=== PATIENT | female | born 1985 | race Caucasian/White ===

== ENCOUNTER 2016-08-25 20:35 | Emergency (ER) | payer OTHER ==
[2016-08-25 20:53] VITALS: BP 139/77; PULSE 104; RESP 16; TEMP 97.8
[2016-08-25] MEDS ORDERED: TOPICAL SKIN ADHESIVE 1 EACH AMP TOPICAL ONE (20:54)
[2016-08-25] MEDS ORDERED: DIPH,PERTUS(ACELL)TETVAC-LF 0.5 ML VIAL IM ONE (20:54)
--- NOTE | 2016-08-25 21:14 | ED ---
General Adult HPI - General Chief complaint: Wound/Laceration Stated complaint: lac rt thumb Time Seen by Provider: 08/25/16 20:53 Source: patient, RN notes reviewed Mode of arrival: ambulatory Limitations: no limitations - History of Present Illness Initial comments: This is a 31-year-old female presents with a scratch to the right thumb that happened approximately 1 hour ago. Patient states she was doing dishes and washing a glass when the rim of the glass broke and scratched her thumb. Patient states she is concerned about the cut. Patient does not know if she is up-to-date on her tetanus shot. Patient denies any numbness/weakness or tingling. Patient denies any recent fever, chills, shortness breath, chest pain , abdominal pain, nausea/vomiting/diarrhea, back pain, hematuria, headache, or visual changes, or any other complaints. - Related Data Home Medications Medication Instructions Recorded Confirmed Loratadine [Claritin] 10 mg PO DAILY 12/09/15 08/25/16 Omeprazole 20 mg PO BID 02/03/16 08/25/16 Previous Rx's Medication Instructions Recorded Divalproex [Depakote] 500 mg PO BID #60 tablet. 02/08/16 Ibuprofen [Motrin] 800 mg PO Q8H PRN #0 tab 02/08/16 QUEtiapine [SEROquel] 200 mg PO HS #30 tab 02/08/16 buPROPion XL [Wellbutrin XL] 150 mg PO DAILY #30 tab.er.24h 02/08/16 Clindamycin [Cleocin] 300 mg PO Q8HR #60 capsule 03/11/16 HYDROcodone/APAP 5-325MG [[place] 1 tab PO Q4HR PRN #20 tab 03/11/16 5-325] HYDROcodone/APAP 5-325MG [[place] 5] 1 each PO Q4HR #5 tab 03/31/16 Ibuprofen [Motrin] 400 mg PO Q4H 7 Days 03/31/16 Ondansetron [Zofran] 4 mg PO Q8HR #21 tab 03/31/16 Allergies Allergy/AdvReac Type Severity Reaction Status Date / Time amoxicillin Allergy Rash/Hives Verified 03/11/16 16:03 ciprofloxacin Allergy Anaphylaxis Verified 03/11/16 16:03 codeine Allergy Rash/Hives Verified 08/25/16 20:53 Review of Systems ROS Statement: Those systems with pertinent positive or pertinent negative responses have been documented in the HPI. ROS Other: All systems not noted in ROS Statement are negative. Past Medical History Past Medical History: No Reported History Additional Past Medical History / Comment(s): currently has a staph infection from tubal History of Any Multi-Drug Resistant Organisms: MRSA Date of last positivie culture/infection: 2009 MDRO Source:: left chest Past Surgical History: Tubal Ligation Additional Past Surgical History / Comment(s): right foot bunionectomy Past Anesthesia/Blood Transfusion Reactions: No Reported Reaction Past Psychological History: Anxiety, Depression Smoking Status: Current every day smoker Past Alcohol Use History: None Reported Past Drug Use History: None Reported General Exam - General Exam Comments Initial Comments: General: The patient is awake and alert, in no distress, and does not appear acutely ill. Neck: The neck is supple, there is no tenderness or JVD. Cardiovascular: There is a regular rate and rhythm. No murmur, rub or gallop is appreciated. Respiratory: Lungs are clear to auscultation, respirations are non-labored, breath sounds are equal. No wheezes, stridor, rales, or rhonchi. Musculoskeletal: Patient has full range of motion, strength 5/5 and Sensation intact. Radial pulses 2+ bilaterally and capillary refill is normal at less than 2 seconds. Neurological: A&O x 3. CN II-XII intact, There are no obvious motor or sensory deficits. Coordination appears grossly intact. Speech is normal. Skin: There is an approximately 2.5 cm scratch to the patient's medial aspect of the MCP joint of the first digit of the right hand. Skin is warm and dry and no rashes or lesions are noted. Psychiatric: Normal mood and affect. Limitations: no limitations Course Vital Signs 08/25/16 20:51 Temperature 97.8 F Pulse Rate 104 H Respiratory 16 Rate Blood Pressure 139/77 O2 Sat by Pulse 98 Oximetry Medical Decision Making - Medical Decision Making This is a 31-year-old female presenting with a scratch to the right thumb. On physical exam there is an approximately 2.5 cm scratch to the patient's medial aspect of the MCP joint of the first digit of the right hand. Patient is given a tetanus shot in the EC today. The wound was cleansed with normal saline. This is a very superficial scratch with very well approximated wound edges and the wound was closed successfully with Dermabond. I discussed Tylenol and Motrin for any pain. I discussed keeping the area clean and discussed that the patient should not submerge the wound in water. Discussed keeping the wound covered at work. I discussed the Dermabond will follow off on its own. I discussed return parameters and signs and symptoms of infection. Discussed that patient should follow up with PCP in one to 2 days or return to the [facility] for any worsening symptoms or for any further concerns. Patient was receptive to this plan and patient will be discharged home. Disposition Clinical Impression: Scratch of hand Disposition: HOME SELF-CARE Condition: Good Instructions: Abrasion (ED) Additional Instructions: Please do not submerge the wound in water but rinsing and showering okay. Dermabond will fall off on its own in 5-7 days. Please watch for the any increasing redness, swelling, tenderness or drainage from the wound. Please use Tylenol and Motrin for any pain. Please follow-up with family doctor in the next 2 days of symptoms have not improved. Please return to emergency room if the symptoms increase or worsen or for any other concerns. Referrals: Baron Salmeron Jr, [Primary Care Provider] - 1-2 days Time of Disposition: 21:17
== END 2016-08-25 21:31 | disposition home or self-care (01) ==
LOC: EC 20:35
DX: S61.011A Laceration without foreign body of right thumb without damage to nail, initial encounter (principal); Y93.G1 Activity, food preparation and clean up; W25.XXXA Contact with sharp glass, initial encounter; F32.9 Major depressive disorder, single episode, unspecified; F41.9 Anxiety disorder, unspecified; Z23 Encounter for immunization; Z86.14 Personal history of Methicillin resistant Staphylococcus aureus infection; Z79.899 Other long term (current) drug therapy; F17.200 Nicotine dependence, unspecified, uncomplicated; Z88.1 Allergy status to other antibiotic agents; Z88.5 Allergy status to narcotic agent; Z88.2 Allergy status to sulfonamides
CPT/HCPCS: 12001; 90471; 90715; 99282

== ENCOUNTER 2016-10-19 12:37 | Emergency (ER) | payer OTHER ==
[2016-10-19] MEDS ORDERED: SODIUM CHLORIDE 0.9% 1,000 ML IV STA ×2 (14:03→15:17)
[2016-10-19 14:23] LABS: Glucose,Whole Blood 110 mg/dL (75-99)
--- NOTE | 2016-10-19 14:27 | ED ---
General Adult HPI - General Chief complaint: Recheck/Abnormal Lab/Rx Stated complaint: syncope/weakness Time Seen by Provider: 10/19/16 13:54 Source: patient, RN notes reviewed Mode of arrival: ambulatory Limitations: no limitations - History of Present Illness Initial comments: Patient 31-year-old female who presents emergency room today with chief complaint feeling lightheaded and dizzy over the last 3 days. She does admit that she's had 2 syncopal episodes. She states that yesterday she was walking down some steps when she passed out and fell down. States he immediately woke up. She denies any head injury at the time. She denies any injuries from the fainting episode. She states still feeling lightheaded dizzy today. She states her appetite spelled down as she is felt more nauseous past 3 days. She states not been eating and drinking like normal. Patient denies any other complaints or associated symptoms. Patient denies any recent fever, chills, shortness of breath, chest pain, back pain, abdominal pain, nausea or vomiting, numbness or tingling, dysuria or hematuria, constipation or diarrhea, headaches or visual changes, or any other complaints. - Related Data Home Medications Medication Instructions Recorded Confirmed Omeprazole 20 mg PO BID 02/03/16 10/19/16 FLUoxetine HCL [PROzac] 40 mg PO DAILY 10/19/16 10/19/16 Varenicline Tartrate [Chantix] 1 mg PO BID 10/19/16 10/19/16 cloNIDine HCL [cloNIDine HCL] 0.3 mg PO HS 10/19/16 10/19/16 Previous Rx's Medication Instructions Recorded Ibuprofen [Motrin] 800 mg PO Q8H PRN #0 tab 02/08/16 Allergies Allergy/AdvReac Type Severity Reaction Status Date / Time amoxicillin Allergy Rash/Hives Verified 10/19/16 14:19 ciprofloxacin Allergy Anaphylaxis Verified 10/19/16 14:19 codeine Allergy Rash/Hives Verified 10/19/16 14:19 Review of Systems ROS Statement: Those systems with pertinent positive or pertinent negative responses have been documented in the HPI. ROS Other: All systems not noted in ROS Statement are negative. Past Medical History Past Medical History: No Reported History Additional Past Medical History / Comment(s): currently has a staph infection from tubal History of Any Multi-Drug Resistant Organisms: MRSA Date of last positivie culture/infection: 2009 MDRO Source:: left chest Past Surgical History: Tubal Ligation Additional Past Surgical History / Comment(s): right foot bunionectomy Past Anesthesia/Blood Transfusion Reactions: No Reported Reaction Past Psychological History: Anxiety, Depression Smoking Status: Former smoker Past Alcohol Use History: None Reported Past Drug Use History: None Reported General Exam - General Exam Comments Initial Comments: General: The patient is awake and alert, in no distress, and does not appear acutely ill. Eye: Pupils are equal, round and reactive to light, extra-ocular movements are intact. No nystagmus. There is normal conjunctiva bilaterally. No signs of icterus. Ears, nose, mouth and throat: There are moist mucous membranes and no oral lesions. Neck: The neck is supple, there is no tenderness or JVD. Cardiovascular: There is a regular rate and rhythm. No murmur, rub or gallop is appreciated. Respiratory: Lungs are clear to auscultation, respirations are non-labored, breath sounds are equal. No wheezes, stridor, rales, or rhonchi. Gastrointestinal: Soft, non-distended, non-tender abdomen without masses or organomegaly noted. There is no rebound or guarding present. No CVA tenderness. Bowel sounds are unremarkable. Musculoskeletal: Normal ROM, no tenderness. Strength 5/5. Sensation intact. Pulses equal bilaterally 2+. Neurological: A&O x 3. CN II-XII intact, There are no obvious motor or sensory deficits. Coordination appears grossly intact. Speech is normal. Skin: Skin is warm and dry and no rashes or lesions are noted. Psychiatric: Cooperative, appropriate mood & affect, normal judgment. Limitations: no limitations Course Vital Signs 10/19/16 10/19/16 10/19/16 12:42 14:22 15:15 Temperature 97 F L 97.9 F 9.2 F L Pulse Rate 74 60 Pulse Rate [ 63 Sitting] Pulse Rate [ 64 Standing] Pulse Rate [ 60 Supine] Respiratory 20 14 16 Rate Blood Pressure 95/40 107/66 Blood Pressure 93/56 [Right Arm Supine] Blood Pressure 93/60 [Sitting] Blood Pressure 86/52 [Standing] O2 Sat by Pulse 98 98 Oximetry Medical Decision Making - Medical Decision Making patient reexamined at this time shows no signs of distress. Patient feeling much better after IV fluids here in the emergency room. Patient was given 2 L bolus. Patient's blood pressure improved. Patient denies any symptoms at this time. She denies any dizziness or lightheadedness. She's been up walking around the room without any problems. Patient's EKG does show sinus bradycardia. patient denies any known history. She does admit that she was placed on clonidine 2 weeks ago. Initial blood pressure was 90s over 50s. Advised patient to hold clonidine. Was discussed with patient. Patient states she feels comfortable being discharged. Case was discussed with attending physician Dr. Jackson discuss case with patient's family doctor Dr. Salmeron states patient may follow-up with him in the office tomorrow morning. Patient states with plan states understanding. - Lab Data Result diagrams: 10/19/16 14:30 10/19/16 14:30 Lab Results 10/19/16 10/19/16 10/19/16 Range/Units 14:18 14:30 14:30 WBC 10.0 (3.8-10.6) k/uL RBC 4.55 (3.80-5.40) m/uL Hgb 12.7 (11.4-16.0) gm/dL Hct 38.1 (34.0-46.0) % MCV 83.7 (80.0-100.0) fL MCH 28.0 (25.0-35.0) pg MCHC 33.4 (31.0-37.0) g/dL RDW 14.6 (11.5-15.5) % Plt Count 288 (150-450) k/uL Neutrophils % 70 % Lymphocytes % 22 % Monocytes % 3 % Eosinophils % 2 % Basophils % 1 % Neutrophils # 7.0 (1.3-7.7) k/uL Lymphocytes # 2.2 (1.0-4.8) k/uL Monocytes # 0.3 (0-1.0) k/uL Eosinophils # 0.2 (0-0.7) k/uL Basophils # 0.1 (0-0.2) k/uL Sodium 138 (137-145) mmol/L Potassium 4.2 (3.5-5.1) mmol/L Chloride 105 (98-107) mmol/L Carbon Dioxide 22 (22-30) mmol/L Anion Gap 11 mmol/L BUN 21 H (7-17) mg/dL Creatinine 1.09 H (0.52-1.04) mg/dL Est GFR (MDRD) Af Amer >60 (>60 ml/min/1.73 sqM) Est GFR (MDRD) Non-Af 59 (>60 ml/min/1.73 sqM) Glucose 100 H (74-99) mg/dL POC Glucose (mg/dL) 110 H (75-99) mg/dL POC Glu Professional Organizer ID Merna Burns Calcium 9.4 (8.4-10.2) mg/dL Total Bilirubin 1.0 (0.2-1.3) mg/dL AST 17 (14-36) U/L ALT 29 (9-52) U/L Alkaline Phosphatase 109 (38-126) U/L Total Protein 7.9 (6.3-8.2) g/dL Albumin 4.7 (3.5-5.0) g/dL Urine Color Urine Appearance (Clear) Urine pH (5.0-8.0) Ur Specific [place] (1.001-1.035) Urine Protein (Negative) Urine Glucose (UA) (Negative) Urine Ketones (Negative) Urine Blood (Negative) Urine Nitrite (Negative) Urine Bilirubin (Negative) Urine Urobilinogen (<2.0) mg/dL Ur Leukocyte Esterase (Negative) Urine RBC (0-5) /hpf Urine WBC (0-5) /hpf Ur Squamous Epith Cells (0-4) /hpf Urine Bacteria (None) /hpf Hyaline Casts (0-2) /lpf Urine Mucus (None) /hpf Urine HCG, Qual (Not Detectd) 10/19/16 10/19/16 Range/Units 15:12 15:15 WBC (3.8-10.6) k/uL RBC (3.80-5.40) m/uL Hgb (11.4-16.0) gm/dL Hct (34.0-46.0) % MCV (80.0-100.0) fL MCH (25.0-35.0) pg MCHC (31.0-37.0) g/dL RDW (11.5-15.5) % Plt Count (150-450) k/uL Neutrophils % % Lymphocytes % % Monocytes % % Eosinophils % % Basophils % % Neutrophils # (1.3-7.7) k/uL Lymphocytes # (1.0-4.8) k/uL Monocytes # (0-1.0) k/uL Eosinophils # (0-0.7) k/uL Basophils # (0-0.2) k/uL Sodium (137-145) mmol/L Potassium (3.5-5.1) mmol/L Chloride (98-107) mmol/L Carbon Dioxide (22-30) mmol/L Anion Gap mmol/L BUN (7-17) mg/dL Creatinine (0.52-1.04) mg/dL Est GFR (MDRD) Af Amer (>60 ml/min/1.73 sqM) Est GFR (MDRD) Non-Af (>60 ml/min/1.73 sqM) Glucose (74-99) mg/dL POC Glucose (mg/dL) (75-99) mg/dL POC Glu Professional Organizer ID Calcium (8.4-10.2) mg/dL Total Bilirubin (0.2-1.3) mg/dL AST (14-36) U/L ALT (9-52) U/L Alkaline Phosphatase (38-126) U/L Total Protein (6.3-8.2) g/dL Albumin (3.5-5.0) g/dL Urine Color Yellow Urine Appearance Clear (Clear) Urine pH 6.0 (5.0-8.0) Ur Specific [place] 1.024 (1.001-1.035) Urine Protein Trace H (Negative) Urine Glucose (UA) Trace H (Negative) Urine Ketones Negative (Negative) Urine Blood Trace H (Negative) Urine Nitrite Negative (Negative) Urine Bilirubin Negative (Negative) Urine Urobilinogen <2.0 (<2.0) mg/dL Ur Leukocyte Esterase Moderate H (Negative) Urine RBC 8 H (0-5) /hpf Urine WBC 6 H (0-5) /hpf Ur Squamous Epith Cells 3 (0-4) /hpf Urine Bacteria Rare H (None) /hpf Hyaline Casts 7 H (0-2) /lpf Urine Mucus Rare H (None) /hpf Urine HCG, Qual Not Detected (Not Detectd) Disposition Clinical Impression: Lightheaded, Syncope, Nausea & vomiting Disposition: HOME SELF-CARE Condition: Stable Instructions: Syncope (ED) Additional Instructions: Please follow-up family doctor tomorrow morning in the office as discussed. Please use nausea medication as prescribed. Please hold clonidine. Please return to emergency room if any symptoms increase or worsen or for any other concerns. Referrals: Baron Salmeron Jr, DO [Primary Care Provider] - 1-2 days Time of Disposition: 16:35
[2016-10-19 14:37] LABS: Basophils # (A) 0.1 k/uL (0-0.2); Basophils % (A) 1 %; CH 27.8; CHCM 33.3; Eosinophils # (A) 0.2 k/uL (0-0.7); Eosinophils % (A) 2 %; HCT 38.1 % (34.0-46.0); HDW 2.87; HGB 12.7 gm/dL (11.4-16.0); Luc # (Auto) 0.16; Luc % (Auto) 2; Lymphocytes # (A) 2.2 k/uL (1.0-4.8); Lymphocytes % (A) 22 %; MCHC 33.4 g/dL (31.0-37.0); MCV 83.7 fL (80.0-100.0); Mean Platelet Volume 7.7; Monocytes # (A) 0.3 k/uL (0-1.0); Monocytes % (A) 3 %; Neutrophils % (A) 70 %; RBC 4.55 m/uL (3.80-5.40); RDW 14.6 % (11.5-15.5); WBC (Perox) 10.64
[2016-10-19 14:51] LABS: ALT 29 U/L (9-52); AST 17 U/L (14-36); Alkaline Phosphatase 109 U/L (38-126); Anion Gap 11 mmol/L; Blood Urea Nitrogen 21 mg/dL (7-17); Calcium 9.4 mg/dL (8.4-10.2); Carbon Dioxide 22 mmol/L (22-30); Chloride 105 mmol/L (98-107); Glucose 100 mg/dL (74-99); Non-African American GFR(MDRD) 59 (>60 ml/min/1.73 sqM); Potassium 4.2 mmol/L (3.5-5.1); Sodium 138 mmol/L (137-145); Total Protein 7.9 g/dL (6.3-8.2)
--- NOTE | 2016-10-19 14:52 | XR ---
EXAMINATION TYPE: XR chest 2V DATE OF EXAM: 10/19/2016 2:41 PM COMPARISON: None HISTORY: 31-year-old female with syncope TECHNIQUE: PA and lateral views FINDINGS: The cardiomediastinal silhouette, aorta, and pulmonary vasculature are within normal limits. Some str rasta bilateral infrahilar areas of atelectasis are present. No consolidation or pleural effusion. IMPRESSION: Strandy areas of atelectasis without acute process.
[2016-10-19 15:28] LABS: Appearance,Urine Clear (Clear); Bacteria,Urine Rare /hpf; Bilirubin,Urine Negative (Negative); Glucose,Urine (UA) Trace (Negative); Ketones,Urine Negative (Negative); Leukocyte Esterase,Urine Moderate (Negative); Mucus,Urine Rare /hpf; Nitrite,Urine Negative (Negative); Particle Count 5707; Protein,Urine Trace (Negative); RBC,Urine 8 /hpf (0-5); Specific Gravity,Urine 1.024 (1.001-1.035); Squamous Epithelial Cell,Urine 3 /hpf (0-4); UA Billing (MACRO vs. MICRO) MICRO; Urobilinogen,Urine <2.0 mg/dL (<2.0); WBC,Urine 6 /hpf (0-5)
[2016-10-19 16:54] VITALS: BP 124/67; PULSE 98; RESP 18; TEMP 97.3
== END 2016-10-19 16:54 | disposition home or self-care (01) ==
LOC: EC 12:37
DX: R55 Syncope and collapse (principal); R42 Dizziness and giddiness; R11.2 Nausea with vomiting, unspecified; F32.9 Major depressive disorder, single episode, unspecified; F41.9 Anxiety disorder, unspecified; Z87.891 Personal history of nicotine dependence; Z79.899 Other long term (current) drug therapy; Z88.0 Allergy status to penicillin; Z88.1 Allergy status to other antibiotic agents; Z88.5 Allergy status to narcotic agent
CPT/HCPCS: 36415; 71020; 80053; 81001; 81025; 85025; 93005; 96360; 96361; 99284

== ENCOUNTER 2016-12-15 12:44 | Emergency (ER) | payer OTHER ==
[2016-12-15] MEDS ORDERED: SODIUM CHLORIDE 0.9% 1,000 ML IV ONE (14:21)
[2016-12-15] MEDS ORDERED: KETOROLAC 30 MG/ML 1 ML VIAL IVP STA (14:22)
--- NOTE | 2016-12-15 14:52 | ED ---
General Adult HPI - General Chief complaint: Abdominal Pain Stated complaint: Retaining Water Time Seen by Provider: 12/15/16 14:08 Source: patient Mode of arrival: ambulatory Limitations: no limitations - History of Present Illness Initial comments: Patient is a 31-year-old female who presents with a chief complaint of dysuria, urinary frequency 3 days. Patient states that she feels as if she has to go to the bathroom mother when she sits to undergo nothing comes out. Patient states that she is having sharp pain in the suprapubic area. She states that he cannot identify any particular aggravating, or alleviating factors. Timing has been constant. Progression has been worsening. Patient also complains today about vaginal discharge. Patient says that her ankles are swelling and that she is also experiencing exertional shortness of breath. Onset/Timin -: days(s) Location: abdomen, pelvis Quality: burning, sharp Consistency: constant Improves with: none Worsens with: none Associated Symptoms: nausea/vomiting - Related Data Home Medications Medication Instructions Recorded Confirmed Omeprazole 20 mg PO BID 02/03/16 12/15/16 FLUoxetine HCL [PROzac] 40 mg PO DAILY 10/19/16 12/15/16 Varenicline Tartrate [Chantix] 1 mg PO BID 10/19/16 12/15/16 Previous Rx's Medication Instructions Recorded Ibuprofen [Motrin] 800 mg PO Q8H PRN #0 tab 02/08/16 Nitrofurantoin Monohyd/M-Cryst 100 mg PO Q12HR #10 cap 12/15/16 [Macrobid] Phenazopyridine HCl [Pyridium] 200 mg PO TID #9 tablet 12/15/16 metroNIDAZOLE [Flagyl] 500 mg PO BID #14 tab 12/15/16 Allergies Allergy/AdvReac Type Severity Reaction Status Date / Time amoxicillin Allergy Rash/Hives Verified 12/15/16 14:23 ciprofloxacin Allergy Anaphylaxis Verified 12/15/16 14:23 codeine Allergy Rash/Hives Verified 12/15/16 14:23 Patient : No (Patient has a history of a tubal ligation) Review of Systems ROS Statement: Those systems with pertinent positive or pertinent negative responses have been documented in the HPI. Patient denies headache, lightheadedness, visual changes, chest pain. Patient admits to shortness of breath, nausea, vomiting ROS Other: All systems not noted in ROS Statement are negative. Past Medical History Past Medical History: No Reported History Additional Past Medical History / Comment(s): currently has a staph infection from tubal History of Any Multi-Drug Resistant Organisms: MRSA Date of last positivie culture/infection: 2009 MDRO Source:: left chest Past Surgical History: Tubal Ligation Additional Past Surgical History / Comment(s): right foot bunionectomy Past Anesthesia/Blood Transfusion Reactions: No Reported Reaction Past Psychological History: Anxiety, Depression Smoking Status: Former smoker Past Alcohol Use History: None Reported Past Drug Use History: None Reported General Exam Limitations: no limitations General appearance: alert, in no apparent distress Head exam: Present: atraumatic, normocephalic Eye exam: Present: normal appearance ENT exam: Present: normal exam, mucous membranes moist Neck exam: Present: normal inspection Respiratory exam: Present: normal lung sounds bilaterally Cardiovascular Exam: Present: regular rate (Patient was not tachycardic to auscultation, triage vitals were reviewed.), normal rhythm GI/Abdominal exam: Present: soft Rectal exam: Present: deferred Extremities exam: Present: pedal edema (Patient has 1+ pitting edema bilaterally. She does not have any calf or ankle tenderness.) Back exam: Present: normal inspection Neurological exam: Present: alert, oriented X3, normal gait Psychiatric exam: Present: normal affect, normal mood Skin exam: Present: warm, dry, intact Course Vital Signs 12/15/16 12:52 Temperature 98.2 F Pulse Rate 117 H Respiratory 17 Rate Blood Pressure 113/86 O2 Sat by Pulse 98 Oximetry Medical Decision Making - Medical Decision Making Patient presents with a chief complaint of dysuria, abdominal pain. Patient admits to being short of breath exertionally or the past 3 days, states that she is having bilateral ankle swelling. Examination shows 1+ pitting edema bilaterally, extremities are symmetrical bilaterally. Patient is tachycardic on arrival, she is a Welles for 1.5. We'll add a d-dimer to her lab evaluation to rule out PE. EKG performed at 1509 shows sinus tachycardia with a rate of 103 bpm. Segments appear to be within normal limits. EKG is otherwise nonspecific. 4:19 PM lab evaluation of this patient is unremarkable. D-dimer is negative at 0.29. Urinalysis shows evidence of a urinary tract infection for which she will be treated. Patient had a pelvic exam was consistent with bacterial vaginosis. Gonorrhea, chlamydia swabs were sent off, patient was treated empirically with azithromycin, and Rocephin. Patient will be treated with Flagyl, and Macrobid. I will prescribe Pyridium for symptomatically control. Reevaluation, patient is stable and agreeable with care plan. Patient was instructed to follow-up with her primary care physician, an [employer] [facility] in 5-7 days. She was instructed to return to the emergency department if her symptoms worsen or change in any way. - Lab Data Result diagrams: 12/15/16 15:00 12/15/16 15:00 Lab Results 12/15/16 12/15/16 12/15/16 Range/Units 14:56 15:00 15:00 WBC 6.2 (3.8-10.6) k/uL RBC 3.75 L (3.80-5.40) m/uL Hgb 10.5 L (11.4-16.0) gm/dL Hct 32.0 L (34.0-46.0) % MCV 85.2 (80.0-100.0) fL MCH 28.0 (25.0-35.0) pg MCHC 32.8 (31.0-37.0) g/dL RDW 15.1 (11.5-15.5) % Plt Count 251 (150-450) k/uL Neutrophils % 66 % Lymphocytes % 25 % Monocytes % 4 % Eosinophils % 2 % Basophils % 0 % Neutrophils # 4.1 (1.3-7.7) k/uL Lymphocytes # 1.6 (1.0-4.8) k/uL Monocytes # 0.3 (0-1.0) k/uL Eosinophils # 0.1 (0-0.7) k/uL Basophils # 0.0 (0-0.2) k/uL D-Dimer (<0.60) mg/L FEU Sodium 140 (137-145) mmol/L Potassium 4.4 (3.5-5.1) mmol/L Chloride 105 (98-107) mmol/L Carbon Dioxide 28 (22-30) mmol/L Anion Gap 7 mmol/L BUN 15 (7-17) mg/dL Creatinine 0.96 (0.52-1.04) mg/dL Est GFR (MDRD) Af Amer >60 (>60 ml/min/1.73 sqM) Est GFR (MDRD) Non-Af >60 (>60 ml/min/1.73 sqM) Glucose 83 (74-99) mg/dL Calcium 9.1 (8.4-10.2) mg/dL Urine Color Yellow Urine Appearance Cloudy H (Clear) Urine pH 5.5 (5.0-8.0) Ur Specific [place] 1.017 (1.001-1.035) Urine Protein 1+ H (Negative) Urine Glucose (UA) Negative (Negative) Urine Ketones Negative (Negative) Urine Blood Large H (Negative) Urine Nitrite Positive H (Negative) Urine Bilirubin Negative (Negative) Urine Urobilinogen <2.0 (<2.0) mg/dL Ur Leukocyte Esterase Large H (Negative) Urine RBC >182 H (0-5) /hpf Urine WBC >182 H (0-5) /hpf Ur Squamous Epith Cells 1 (0-4) /hpf Urine Bacteria Many H (None) /hpf Urine Mucus Rare H (None) /hpf 12/15/16 Range/Units 15:00 WBC (3.8-10.6) k/uL RBC (3.80-5.40) m/uL Hgb (11.4-16.0) gm/dL Hct (34.0-46.0) % MCV (80.0-100.0) fL MCH (25.0-35.0) pg MCHC (31.0-37.0) g/dL RDW (11.5-15.5) % Plt Count (150-450) k/uL Neutrophils % % Lymphocytes % % Monocytes % % Eosinophils % % Basophils % % Neutrophils # (1.3-7.7) k/uL Lymphocytes # (1.0-4.8) k/uL Monocytes # (0-1.0) k/uL Eosinophils # (0-0.7) k/uL Basophils # (0-0.2) k/uL D-Dimer 0.29 (<0.60) mg/L FEU Sodium (137-145) mmol/L Potassium (3.5-5.1) mmol/L Chloride (98-107) mmol/L Carbon Dioxide (22-30) mmol/L Anion Gap mmol/L BUN (7-17) mg/dL Creatinine (0.52-1.04) mg/dL Est GFR (MDRD) Af Amer (>60 ml/min/1.73 sqM) Est GFR (MDRD) Non-Af (>60 ml/min/1.73 sqM) Glucose (74-99) mg/dL Calcium (8.4-10.2) mg/dL Urine Color Urine Appearance (Clear) Urine pH (5.0-8.0) Ur Specific [place] (1.001-1.035) Urine Protein (Negative) Urine Glucose (UA) (Negative) Urine Ketones (Negative) Urine Blood (Negative) Urine Nitrite (Negative) Urine Bilirubin (Negative) Urine Urobilinogen (<2.0) mg/dL Ur Leukocyte Esterase (Negative) Urine RBC (0-5) /hpf Urine WBC (0-5) /hpf Ur Squamous Epith Cells (0-4) /hpf Urine Bacteria (None) /hpf Urine Mucus (None) /hpf Disposition Clinical Impression: BV (bacterial vaginosis), Urinary tract infection, Dehydration Disposition: HOME SELF-CARE Condition: Good Referrals: Baron Salmeron Jr, DO [Primary Care Provider] - 1-2 days
[2016-12-15 15:16] LABS: Appearance,Urine Cloudy (Clear); Bacteria,Urine Many /hpf; Bilirubin,Urine Negative (Negative); Glucose,Urine (UA) Negative (Negative); Ketones,Urine Negative (Negative); Leukocyte Esterase,Urine Large (Negative); Mucus,Urine Rare /hpf; Nitrite,Urine Positive (Negative); PH, Urine 5.5 (5.0-8.0); Particle Count 23653; Protein,Urine 1+ (Negative); RBC,Urine >182 /hpf (0-5); Specific Gravity,Urine 1.017 (1.001-1.035); Squamous Epithelial Cell,Urine 1 /hpf (0-4); UA Billing (MACRO vs. MICRO) MICRO; Urobilinogen,Urine <2.0 mg/dL (<2.0); WBC,Urine >182 /hpf (0-5)
[2016-12-15 15:22] LABS: Basophils % (A) 0 %; CH 27.7; CHCM 32.7; Eosinophils # (A) 0.1 k/uL (0-0.7); Eosinophils % (A) 2 %; HDW 3.22; HGB 10.5 gm/dL (11.4-16.0); Luc # (Auto) 0.15; Luc % (Auto) 2; Lymphocytes # (A) 1.6 k/uL (1.0-4.8); Lymphocytes % (A) 25 %; MCHC 32.8 g/dL (31.0-37.0); MCV 85.2 fL (80.0-100.0); Mean Platelet Volume 7.9; Monocytes # (A) 0.3 k/uL (0-1.0); Monocytes % (A) 4 %; Neutrophils # (A) 4.1 k/uL (1.3-7.7); Neutrophils % (A) 66 %; RBC 3.75 m/uL (3.80-5.40); RDW 15.1 % (11.5-15.5); WBC 6.2 k/uL (3.8-10.6); WBC (Perox) 6.65
[2016-12-15 15:28] LABS: Anion Gap 7 mmol/L; Blood Urea Nitrogen 15 mg/dL (7-17); Calcium 9.1 mg/dL (8.4-10.2); Carbon Dioxide 28 mmol/L (22-30); Chloride 105 mmol/L (98-107); Glucose 83 mg/dL (74-99); Non-African American GFR(MDRD) >60 (>60 ml/min/1.73 sqM); Potassium 4.4 mmol/L (3.5-5.1); Sodium 140 mmol/L (137-145)
[2016-12-15] MEDS ORDERED: AZITHROMYCIN 500 MG TAB PO STA (16:16)
[2016-12-15] MEDS ORDERED: cefTRIAXone 250 MG VIAL IV STA (16:16)
[2016-12-15 16:43] VITALS: RESP 16
[2016-12-15 17:24] VITALS: BP 128/76; PULSE 81; TEMP 98.1
== END 2016-12-15 17:25 | disposition home or self-care (01) ==
LOC: EC 12:44
DX: N76.0 Acute vaginitis (principal); N39.0 Urinary tract infection, site not specified; E86.0 Dehydration; R00.0 Tachycardia, unspecified; F32.9 Major depressive disorder, single episode, unspecified; Z87.891 Personal history of nicotine dependence; Z88.0 Allergy status to penicillin; Z88.1 Allergy status to other antibiotic agents; Z88.2 Allergy status to sulfonamides; Z79.899 Other long term (current) drug therapy
CPT/HCPCS: 99284; 96374; 96375; 96361; 36415; 93005; 85379; 80048; 85025; 81001; 87491; 87591; 87086; 87077; 87186; J0696; J1885

== ENCOUNTER 2016-12-17 11:15 | Emergency (ER) | payer OTHER ==
--- NOTE | 2016-12-17 12:32 | ED ---
Recheck HPI - General Chief Complaint: Recheck/Abnormal Lab/Rx Stated Complaint: body swelling Time Seen by Provider: 12/17/16 12:14 Source: patient, RN notes reviewed Mode of arrival: ambulatory Limitations: no limitations - History of Present Illness Initial Comments: Patient is a 31-year-old female presents to the emergency room for evaluation. Patient states she was here about 2 days ago with all over body swelling and burning during urination. Patient states she was diagnosed with bacterial vaginosis sent home on antibiotics. Patient states she woke up this morning with all over body swelling. Patient states it feels like her hands and feet are swollen and abdomen feels distended. Patient denies significant pain. Patient states the swelling makes her feel uncomfortable. Patient states she feels slightly short of breath. Patient denies chest pain. Patient denies headache or dizziness. Patient denies nausea or vomiting. Patient denies any pain or burning during urination. Patient denies constipation or diarrhea. Patient states her last bowel movement was yesterday. Patient states she had normal bowel movement. - Related Data Home Medications Medication Instructions Recorded Confirmed Omeprazole 20 mg PO BID 02/03/16 12/17/16 FLUoxetine HCL [PROzac] 40 mg PO DAILY 10/19/16 12/17/16 Varenicline Tartrate [Chantix] 1 mg PO BID 10/19/16 12/17/16 Amitriptyline HCl [Elavil] 100 - 150 mg PO HS 12/17/16 12/17/16 Previous Rx's Medication Instructions Recorded Ibuprofen [Motrin] 800 mg PO Q8H PRN #0 tab 02/08/16 Nitrofurantoin Monohyd/M-Cryst 100 mg PO Q12HR #10 cap 12/15/16 [Macrobid] Phenazopyridine HCl [Pyridium] 200 mg PO TID #9 tablet 12/15/16 metroNIDAZOLE [Flagyl] 500 mg PO BID #14 tab 12/15/16 Allergies Allergy/AdvReac Type Severity Reaction Status Date / Time ciprofloxacin Allergy Anaphylaxis Verified 12/17/16 12:08 Review of Systems ROS Statement: Those systems with pertinent positive or pertinent negative responses have been documented in the HPI. ROS Other: All systems not noted in ROS Statement are negative. Past Medical History Past Medical History: No Reported History, Hypertension Additional Past Medical History / Comment(s): currently has a staph infection from tubal History of Any Multi-Drug Resistant Organisms: MRSA Date of last positivie culture/infection: 2009 MDRO Source:: left chest Past Surgical History: Tubal Ligation Additional Past Surgical History / Comment(s): right foot bunionectomy Past Anesthesia/Blood Transfusion Reactions: No Reported Reaction Past Psychological History: Anxiety, Depression Smoking Status: Former smoker Past Alcohol Use History: None Reported Past Drug Use History: None Reported General Exam - General Exam Comments Initial Comments: Sitting in exam room, no acute distress. Limitations: no limitations General appearance: alert, in no apparent distress Head exam: Present: atraumatic, normocephalic, normal inspection Eye exam: Present: normal appearance ENT exam: Present: normal exam Neck exam: Present: normal inspection Respiratory exam: Present: normal lung sounds bilaterally. Absent: respiratory distress Cardiovascular Exam: Present: regular rate, normal rhythm, normal heart sounds GI/Abdominal exam: Present: soft, normal bowel sounds. Absent: distended, tenderness, guarding, rebound, rigid Extremities exam: Present: normal capillary refill (capillary refill less than 2 seconds), pedal edema, joint swelling. Absent: tenderness, calf tenderness Back exam: Present: normal inspection Neurological exam: Present: alert, oriented X3, CN II-XII intact, normal gait Psychiatric exam: Present: normal affect, normal mood Skin exam: Present: warm, dry, intact, normal color. Absent: rash Course Vital Signs 12/17/16 12/17/16 12/17/16 11:37 13:38 14:14 Temperature 98.1 F 98.4 F 96.8 F L Pulse Rate 111 H 97 101 H Respiratory 16 15 Rate Blood Pressure 113/73 134/73 127/67 O2 Sat by Pulse 96 99 99 Oximetry Medical Decision Making - Medical Decision Making Patient is a 31-year-old female presents to the emergency room for evaluation of all over body swelling. No significant findings on labs. Patient given 40 mg IV of Lasix advised to follow-up with primary care provider. Return parameters discussed. Case discussed with Dr. Coleman. - Lab Data Result diagrams: 12/17/16 13:00 12/17/16 13:00 Lab Results 12/17/16 12/17/16 12/17/16 Range/Units 13:00 13:00 13:00 WBC 5.5 (3.8-10.6) k/uL RBC 4.02 (3.80-5.40) m/uL Hgb 11.0 L (11.4-16.0) gm/dL Hct 34.5 (34.0-46.0) % MCV 85.9 (80.0-100.0) fL MCH 27.4 (25.0-35.0) pg MCHC 31.9 (31.0-37.0) g/dL RDW 15.1 (11.5-15.5) % Plt Count 260 (150-450) k/uL Neutrophils % 68 % Lymphocytes % 22 % Monocytes % 5 % Eosinophils % 4 % Basophils % 0 % Neutrophils # 3.7 (1.3-7.7) k/uL Lymphocytes # 1.2 (1.0-4.8) k/uL Monocytes # 0.3 (0-1.0) k/uL Eosinophils # 0.2 (0-0.7) k/uL Basophils # 0.0 (0-0.2) k/uL Hypochromasia Slight PT (9.0-12.0) sec INR (<1.2) APTT (22.0-30.0) sec D-Dimer (<0.60) mg/L FEU Sodium 140 (137-145) mmol/L Potassium 4.7 (3.5-5.1) mmol/L Chloride 106 (98-107) mmol/L Carbon Dioxide 27 (22-30) mmol/L Anion Gap 7 mmol/L BUN 14 (7-17) mg/dL Creatinine 1.00 (0.52-1.04) mg/dL Est GFR (MDRD) Af Amer >60 (>60 ml/min/1.73 sqM) Est GFR (MDRD) Non-Af >60 (>60 ml/min/1.73 sqM) Glucose 98 (74-99) mg/dL Calcium 8.9 (8.4-10.2) mg/dL Magnesium 2.1 (1.6-2.3) mg/dL Total Bilirubin 0.5 (0.2-1.3) mg/dL AST 43 H (14-36) U/L ALT 58 H (9-52) U/L Alkaline Phosphatase 89 (38-126) U/L Total Creatine Kinase 451 H (30-135) U/L CK-MB (CK-2) 3.0 H* (0.0-2.4) ng/mL CK-MB (CK-2) Rel Index 0.7 Troponin I <0.012 (0.000-0.034) ng/mL NT-Pro-B Natriuret Pep pg/mL Total Protein 6.2 L (6.3-8.2) g/dL Albumin 3.7 (3.5-5.0) g/dL Amylase <30 L (30-110) U/L Lipase 61 (23-300) U/L TSH (0.465-4.680) mIU/L Urine Color Urine Appearance (Clear) Urine pH (5.0-8.0) Ur Specific [place] (1.001-1.035) Urine Protein (Negative) Urine Glucose (UA) (Negative) Urine Ketones (Negative) Urine Blood (Negative) Urine Nitrite (Negative) Urine Bilirubin (Negative) Urine Urobilinogen (<2.0) mg/dL Ur Leukocyte Esterase (Negative) Urine RBC (0-5) /hpf Urine WBC (0-5) /hpf Ur Squamous Epith Cells (0-4) /hpf Urine Bacteria (None) /hpf Urine Mucus (None) /hpf 12/17/16 12/17/16 12/17/16 Range/Units 13:00 13:00 13:00 WBC (3.8-10.6) k/uL RBC (3.80-5.40) m/uL Hgb (11.4-16.0) gm/dL Hct (34.0-46.0) % MCV (80.0-100.0) fL MCH (25.0-35.0) pg MCHC (31.0-37.0) g/dL RDW (11.5-15.5) % Plt Count (150-450) k/uL Neutrophils % % Lymphocytes % % Monocytes % % Eosinophils % % Basophils % % Neutrophils # (1.3-7.7) k/uL Lymphocytes # (1.0-4.8) k/uL Monocytes # (0-1.0) k/uL Eosinophils # (0-0.7) k/uL Basophils # (0-0.2) k/uL Hypochromasia PT 9.8 (9.0-12.0) sec INR 1.0 (<1.2) APTT 26.4 (22.0-30.0) sec D-Dimer 0.45 (<0.60) mg/L FEU Sodium (137-145) mmol/L Potassium (3.5-5.1) mmol/L Chloride (98-107) mmol/L Carbon Dioxide (22-30) mmol/L Anion Gap mmol/L BUN (7-17) mg/dL Creatinine (0.52-1.04) mg/dL Est GFR (MDRD) Af Amer (>60 ml/min/1.73 sqM) Est GFR (MDRD) Non-Af (>60 ml/min/1.73 sqM) Glucose (74-99) mg/dL Calcium (8.4-10.2) mg/dL Magnesium (1.6-2.3) mg/dL Total Bilirubin (0.2-1.3) mg/dL AST (14-36) U/L ALT (9-52) U/L Alkaline Phosphatase (38-126) U/L Total Creatine Kinase (30-135) U/L CK-MB (CK-2) (0.0-2.4) ng/mL CK-MB (CK-2) Rel Index Troponin I (0.000-0.034) ng/mL NT-Pro-B Natriuret Pep 37 pg/mL Total Protein (6.3-8.2) g/dL Albumin (3.5-5.0) g/dL Amylase (30-110) U/L Lipase (23-300) U/L TSH (0.465-4.680) mIU/L Urine Color Dark Brown Urine Appearance Clear (Clear) Urine pH 5.5 (5.0-8.0) Ur Specific [place] 1.013 (1.001-1.035) Urine Protein Negative (Negative) Urine Glucose (UA) Negative (Negative) Urine Ketones Negative (Negative) Urine Blood Negative (Negative) Urine Nitrite Positive H (Negative) Urine Bilirubin Negative (Negative) Urine Urobilinogen 2.0 (<2.0) mg/dL Ur Leukocyte Esterase Negative (Negative) Urine RBC <1 (0-5) /hpf Urine WBC 3 (0-5) /hpf Ur Squamous Epith Cells 2 (0-4) /hpf Urine Bacteria Rare H (None) /hpf Urine Mucus Rare H (None) /hpf 12/17/16 Range/Units 13:00 WBC (3.8-10.6) k/uL RBC (3.80-5.40) m/uL Hgb (11.4-16.0) gm/dL Hct (34.0-46.0) % MCV (80.0-100.0) fL MCH (25.0-35.0) pg MCHC (31.0-37.0) g/dL RDW (11.5-15.5) % Plt Count (150-450) k/uL Neutrophils % % Lymphocytes % % Monocytes % % Eosinophils % % Basophils % % Neutrophils # (1.3-7.7) k/uL Lymphocytes # (1.0-4.8) k/uL Monocytes # (0-1.0) k/uL Eosinophils # (0-0.7) k/uL Basophils # (0-0.2) k/uL Hypochromasia PT (9.0-12.0) sec INR (<1.2) APTT (22.0-30.0) sec D-Dimer (<0.60) mg/L FEU Sodium (137-145) mmol/L Potassium (3.5-5.1) mmol/L Chloride (98-107) mmol/L Carbon Dioxide (22-30) mmol/L Anion Gap mmol/L BUN (7-17) mg/dL Creatinine (0.52-1.04) mg/dL Est GFR (MDRD) Af Amer (>60 ml/min/1.73 sqM) Est GFR (MDRD) Non-Af (>60 ml/min/1.73 sqM) Glucose (74-99) mg/dL Calcium (8.4-10.2) mg/dL Magnesium (1.6-2.3) mg/dL Total Bilirubin (0.2-1.3) mg/dL AST (14-36) U/L ALT (9-52) U/L Alkaline Phosphatase (38-126) U/L Total Creatine Kinase (30-135) U/L CK-MB (CK-2) (0.0-2.4) ng/mL CK-MB (CK-2) Rel Index Troponin I (0.000-0.034) ng/mL NT-Pro-B Natriuret Pep pg/mL Total Protein (6.3-8.2) g/dL Albumin (3.5-5.0) g/dL Amylase (30-110) U/L Lipase (23-300) U/L TSH 2.460 (0.465-4.680) mIU/L Urine Color Urine Appearance (Clear) Urine pH (5.0-8.0) Ur Specific [place] (1.001-1.035) Urine Protein (Negative) Urine Glucose (UA) (Negative) Urine Ketones (Negative) Urine Blood (Negative) Urine Nitrite (Negative) Urine Bilirubin (Negative) Urine Urobilinogen (<2.0) mg/dL Ur Leukocyte Esterase (Negative) Urine RBC (0-5) /hpf Urine WBC (0-5) /hpf Ur Squamous Epith Cells (0-4) /hpf Urine Bacteria (None) /hpf Urine Mucus (None) /hpf - Radiology Data Radiology results: report reviewed, image reviewed Disposition Clinical Impression: Edema Disposition: HOME SELF-CARE Condition: Good Instructions: Edema (ED) Additional Instructions: Please follow up with primary care provider in 1-2 days. If any new symptom arises or symptoms worsen, return to ER as soon as possible. Referrals: Baron Salmeron Jr, DO [Primary Care Provider] - 1-2 days Time of Disposition: 14:05
[2016-12-17 13:24] LABS: Basophils % (A) 0 %; CH 27.7; CHCM 32.4; Eosinophils # (A) 0.2 k/uL (0-0.7); Eosinophils % (A) 4 %; HCT 34.5 % (34.0-46.0); HDW 3.17; Hypochromasia Slight; Luc # (Auto) 0.09; Luc % (Auto) 2; Lymphocytes # (A) 1.2 k/uL (1.0-4.8); Lymphocytes % (A) 22 %; MCH 27.4 pg (25.0-35.0); MCHC 31.9 g/dL (31.0-37.0); MCV 85.9 fL (80.0-100.0); Mean Platelet Volume 7.8; Monocytes # (A) 0.3 k/uL (0-1.0); Monocytes % (A) 5 %; Neutrophils # (A) 3.7 k/uL (1.3-7.7); Neutrophils % (A) 68 %; RBC 4.02 m/uL (3.80-5.40); RDW 15.1 % (11.5-15.5); WBC 5.5 k/uL (3.8-10.6); WBC (Perox) 5.53
[2016-12-17 13:25] LABS: Appearance,Urine Clear (Clear); Bacteria,Urine Rare /hpf; Bilirubin,Urine Negative (Negative); Glucose,Urine (UA) Negative (Negative); Ketones,Urine Negative (Negative); Leukocyte Esterase,Urine Negative (Negative); Mucus,Urine Rare /hpf; Nitrite,Urine Positive (Negative); PH, Urine 5.5 (5.0-8.0); Particle Count 1021; Protein,Urine Negative (Negative); RBC,Urine <1 /hpf (0-5); Specific Gravity,Urine 1.013 (1.001-1.035); Squamous Epithelial Cell,Urine 2 /hpf (0-4); UA Billing (MACRO vs. MICRO) MICRO; WBC,Urine 3 /hpf (0-5)
[2016-12-17 13:29] LABS: ALT 58 U/L (9-52); AST 43 U/L (14-36); Alkaline Phosphatase 89 U/L (38-126); Amylase <30 U/L (30-110); Anion Gap 7 mmol/L; Blood Urea Nitrogen 14 mg/dL (7-17); Calcium 8.9 mg/dL (8.4-10.2); Carbon Dioxide 27 mmol/L (22-30); Chloride 106 mmol/L (98-107); Glucose 98 mg/dL (74-99); Magnesium 2.1 mg/dL (1.6-2.3); Non-African American GFR(MDRD) >60 (>60 ml/min/1.73 sqM); Potassium 4.7 mmol/L (3.5-5.1); Sodium 140 mmol/L (137-145); Total Bilirubin 0.5 mg/dL (0.2-1.3); Total Protein 6.2 g/dL (6.3-8.2)
[2016-12-17 13:32] LABS: Partial Thromboplastin Time 26.4 sec (22.0-30.0); Prothrombin Time 9.8 sec (9.0-12.0)
--- NOTE | 2016-12-17 13:32 | XR ---
EXAMINATION TYPE: XR chest 2V DATE OF EXAM: 12/17/2016 COMPARISON: 10/19/2016 HISTORY: Short of breath TECHNIQUE: Frontal and lateral views of the chest are obtained. FINDINGS: Heart and mediastinum are normal. Lungs are clear. Diaphragm is normal. Bony thorax is int act. IMPRESSION: Normal chest. No change.
[2016-12-17 13:39] VITALS: RESP 15
[2016-12-17 13:39] LABS: Creatine Kinase 451 U/L (30-135)
[2016-12-17 13:52] LABS: Troponin I <0.012 ng/mL (0.000-0.034)
[2016-12-17] MEDS ORDERED: FUROSEMIDE 10 MG/ML 4 ML VIAL IV STA (14:05)
[2016-12-17] MEDS ORDERED: KETOROLAC 30 MG/ML 1 ML VIAL IVP STA (14:07)
[2016-12-17 14:16] VITALS: BP 127/67; PULSE 101; TEMP 96.8
== END 2016-12-17 14:15 | disposition home or self-care (01) ==
LOC: EC 11:15
DX: R60.0 Localized edema (principal); R06.02 Shortness of breath; R00.0 Tachycardia, unspecified; I10 Essential (primary) hypertension; F41.9 Anxiety disorder, unspecified; F32.9 Major depressive disorder, single episode, unspecified; Z88.1 Allergy status to other antibiotic agents; Z79.899 Other long term (current) drug therapy; Z87.891 Personal history of nicotine dependence
CPT/HCPCS: 99284; 96374; 96375; 36415; 93005; 85379; 83880; 80053; 82150; 82550; 82553; 83690; 83735; 84443; 84484; 85025; 85610; 85730; 81001; 71020; J1940; J1885

== ENCOUNTER 2017-01-10 12:39 | Emergency (ER) | payer OTHER ==
[2017-01-10 12:48] VITALS: BP 123/79; PULSE 104; RESP 20; TEMP 97.7
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
--- NOTE | 2017-01-10 13:13 | XR ---
EXAMINATION TYPE: 3 views right ankle. 3 views right foot DATE OF EXAM: 01/10/2017 COMPARISON: NONE HISTORY: 31-year-old female pain and swelling of the right foot, prior injury one year ago. FINDINGS: Right foot: There is bony deformity to the medial aspect of the first metatarsal head. Correlation should be made for prior healed fracture here or in the neck to me. No acute fracture, subluxation, or dislocation. Right ankle: There is soft tissue swelling circumferentially about the ankle. Slight loss of the distal tibiofibul ar overlap. Syndesmosis otherwise intact. Talar dome appears intact. No acute fracture, subluxation, or dislocation. IMPRESSION: 1. Right ankle: Soft tissue swelling about the ankle. No acute osseous abnormality seen. There is sli ght loss of the distal tibiofibular overlap; correlation can be made to exclude high ankle sprain. 2. Right foot: Some stable bony deformity to the distal aspect of the first metatarsal could reflect sequela of prior injury or bunionectomy. No acute osseous abnormality seen.
== END 2017-01-10 13:25 | disposition home or self-care (01) ==
LOC: EC 12:39
DX: S93.401A Sprain of unspecified ligament of right ankle, initial encounter (principal); F32.9 Major depressive disorder, single episode, unspecified; F41.9 Anxiety disorder, unspecified; Z87.891 Personal history of nicotine dependence; Z88.1 Allergy status to other antibiotic agents; Z79.899 Other long term (current) drug therapy; X58.XXXA Exposure to other specified factors, initial encounter
CPT/HCPCS: 99283

== ENCOUNTER 2017-01-13 23:47 | Emergency (ER) | payer OTHER ==
[2017-01-14] MEDS ORDERED: HYDROcodone/APAP 5-325MG 1 EACH TAB PO STA (00:08)
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
[2017-01-14 01:01] VITALS: BP 130/87; PULSE 112; RESP 16; TEMP 98.6
== END 2017-01-14 01:09 | disposition home or self-care (01) ==
LOC: EC 23:47
DX: T23.252A Burn of second degree of left palm, initial encounter (principal); T23.142A Burn of first degree of multiple left fingers (nail), including thumb, initial encounter; F32.9 Major depressive disorder, single episode, unspecified; F41.9 Anxiety disorder, unspecified; Z87.891 Personal history of nicotine dependence; Z79.899 Other long term (current) drug therapy; Z88.1 Allergy status to other antibiotic agents; X02.8XXA Other exposure to controlled fire in building or structure, initial encounter; Y93.89 Activity, other specified
CPT/HCPCS: 99283

== ENCOUNTER 2017-01-16 21:38 | Emergency (ER) | payer OTHER ==
[2017-01-16 21:44] VITALS: TEMP 97.8
[2017-01-16] MEDS ORDERED: SODIUM CHLORIDE 0.9% 1,000 ML IV ONE (23:00)
[2017-01-16 23:32] LABS: Basophils % (A) 0 %; CH 28.7; CHCM 32.1; Eosinophils # (A) 0.2 k/uL (0-0.7); Eosinophils % (A) 3 %; HCT 31.8 % (34.0-46.0); HDW 2.82; Luc # (Auto) 0.15; Luc % (Auto) 2; Lymphocytes # (A) 1.8 k/uL (1.0-4.8); Lymphocytes % (A) 25 %; MCH 28.1 pg (25.0-35.0); MCHC 31.4 g/dL (31.0-37.0); MCV 89.6 fL (80.0-100.0); Mean Platelet Volume 8.6; Monocytes # (A) 0.2 k/uL (0-1.0); Monocytes % (A) 3 %; Neutrophils # (A) 4.9 k/uL (1.3-7.7); Neutrophils % (A) 67 %; RBC 3.55 m/uL (3.80-5.40); RDW 15.6 % (11.5-15.5); WBC 7.4 k/uL (3.8-10.6); WBC (Perox) 7.51
[2017-01-16 23:42] LABS: Anion Gap 10 mmol/L; Blood Urea Nitrogen 20 mg/dL (7-17); Calcium 8.8 mg/dL (8.4-10.2); Carbon Dioxide 23 mmol/L (22-30); Chloride 107 mmol/L (98-107); Glucose 102 mg/dL (74-99); Non-African American GFR(MDRD) >60 (>60 ml/min/1.73 sqM); Potassium 4.6 mmol/L (3.5-5.1); Sodium 140 mmol/L (137-145)
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
[2017-01-17 00:56] VITALS: BP 110/68; PULSE 100; RESP 16
--- NOTE | 2017-01-17 02:00 | US ---
EXAM: US Duplex Bilateral Lower Extremity Veins CLINICAL HISTORY: Reason: Pain TECHNIQUE: Real-time ultrasound scan of the veins of the bilateral lower extremities with color Doppler flow, spectral waveform analysis and compression. COMPARISON: No relevant prior studies available. FINDINGS: Right deep veins: Unremarkable. No DVT in the right common femoral, femoral, proximal deep femoral or popliteal veins. The veins are compressible with normal color flow and augmentation. Right superficial veins: Unremarkable. No thrombus in the visualized right great saphenous vein. Left deep veins: Unremarkable. No DVT in the left common femoral, femoral, proximal deep femoral or popliteal veins. The veins are compressible with normal color flow and augmentation. Left superficial veins: Unremarkable. No thrombus in the visualized left great saphenous vein. Soft tissues: Edema is seen. No acute findings. No popliteal cyst. IMPRESSION: No evidence of deep venous thrombosis within the lower extremities bilaterally.
== END 2017-01-17 02:32 | disposition left against medical advice (07) ==
LOC: EC 21:38
DX: R60.0 Localized edema (principal); F10.120 Alcohol abuse with intoxication, uncomplicated; T23.002D Burn of unspecified degree of left hand, unspecified site, subsequent encounter; R45.1 Restlessness and agitation; R41.0 Disorientation, unspecified; F41.9 Anxiety disorder, unspecified; F32.9 Major depressive disorder, single episode, unspecified; Z87.891 Personal history of nicotine dependence; Z86.14 Personal history of Methicillin resistant Staphylococcus aureus infection; Z79.899 Other long term (current) drug therapy; Z88.1 Allergy status to other antibiotic agents
CPT/HCPCS: 36415; 80048; 85025; 85379; 93970; 96360; 99284

== ENCOUNTER 2017-01-31 15:33 | Emergency (ER) | payer OTHER ==
[2017-01-31 15:55] VITALS: BP 133/67; PULSE 133; RESP 18; TEMP 99
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
[2017-01-31 16:35] LABS: Basophils % (A) 0 %; CH 27.5; CHCM 32.9; Eosinophils # (A) 0.1 k/uL (0-0.7); Eosinophils % (A) 1 %; HCT 34.4 % (34.0-46.0); HDW 3.16; HGB 11.6 gm/dL (11.4-16.0); Luc # (Auto) 0.16; Luc % (Auto) 2; Lymphocytes # (A) 1.3 k/uL (1.0-4.8); Lymphocytes % (A) 13 %; MCH 28.1 pg (25.0-35.0); MCHC 33.6 g/dL (31.0-37.0); Mean Platelet Volume 7.6; Monocytes # (A) 0.3 k/uL (0-1.0); Monocytes % (A) 3 %; Neutrophils # (A) 8.3 k/uL (1.3-7.7); Neutrophils % (A) 81 %; RDW 14.1 % (11.5-15.5); WBC 10.3 k/uL (3.8-10.6); WBC (Perox) 10.53
[2017-01-31 16:38] LABS: Appearance,Urine Clear (Clear); Bacteria,Urine Rare /hpf; Bilirubin,Urine Negative (Negative); Glucose,Urine (UA) Negative (Negative); Ketones,Urine Negative (Negative); Leukocyte Esterase,Urine Trace (Negative); Mucus,Urine Few /hpf; Nitrite,Urine Negative (Negative); Particle Count 6951; Protein,Urine 2+ (Negative); RBC,Urine 3 /hpf (0-5); Specific Gravity,Urine 1.026 (1.001-1.035); Squamous Epithelial Cell,Urine 4 /hpf (0-4); UA Billing (MACRO vs. MICRO) MICRO; Urobilinogen,Urine <2.0 mg/dL (<2.0); WBC,Urine 5 /hpf (0-5)
[2017-01-31 16:45] LABS: Anion Gap 9 mmol/L; Blood Urea Nitrogen 16 mg/dL (7-17); Calcium 9.4 mg/dL (8.4-10.2); Carbon Dioxide 24 mmol/L (22-30); Chloride 106 mmol/L (98-107); Glucose 111 mg/dL (74-99); Non-African American GFR(MDRD) >60 (>60 ml/min/1.73 sqM); Potassium 3.9 mmol/L (3.5-5.1); Sodium 139 mmol/L (137-145)
[2017-01-31 16:55] LABS: MCV 83.8 fL (80.0-100.0)
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
== END 2017-01-31 17:55 | disposition home or self-care (01) ==
LOC: EC 15:33
DX: S00.83XA Contusion of other part of head, initial encounter (principal); S80.212A Abrasion, left knee, initial encounter; I10 Essential (primary) hypertension; F32.9 Major depressive disorder, single episode, unspecified; F41.9 Anxiety disorder, unspecified; R00.0 Tachycardia, unspecified; Z88.1 Allergy status to other antibiotic agents; Z79.899 Other long term (current) drug therapy; Z87.891 Personal history of nicotine dependence; Y04.0XXA Assault by unarmed brawl or fight, initial encounter; Y92.410 Unspecified street and highway as the place of occurrence of the external cause
CPT/HCPCS: 36415; 70450; 70486; 71020; 72125; 80048; 80306; 81001; 81025; 85025; 99284

== ENCOUNTER 2017-02-01 20:55 | Emergency (ER) | payer OTHER ==
[2017-02-01] MEDS ORDERED: RX INFO: IV CONTRAST WAS GIVEN 1 EACH MISC MISCELLANE PRN (21:05)
[2017-02-01] MEDS ORDERED: DIPH,PERTUS(ACELL)TETVAC-LF 0.5 ML VIAL IM ONE (21:05)
[2017-02-01 21:12] LABS: Glucose,Whole Blood 97 mg/dL (75-99)
[2017-02-01 21:18] LABS: VBG PH 7.38 (7.31-7.41)
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
[2017-02-01 21:28] LABS: Partial Thromboplastin Time 25.8 sec (22.0-30.0); Prothrombin Time 10.6 sec (9.0-12.0)
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
[2017-02-01 21:35] LABS: ALT 66 U/L (9-52); AST 40 U/L (14-36); Alcohol <10 mg/dL; Alkaline Phosphatase 102 U/L (38-126); Blood Urea Nitrogen 16 mg/dL (7-17); Carbon Dioxide 24 mmol/L (22-30); Non-African American GFR(MDRD) >60 (>60 ml/min/1.73 sqM); Total Bilirubin 0.6 mg/dL (0.2-1.3)
[2017-02-01 21:42] LABS: Creatine Kinase 236 U/L (30-135)
[2017-02-01 21:46] LABS: Basophils % (A) 0 %; CH 27.6; CHCM 32.4; Eosinophils # (A) 0.1 k/uL (0-0.7); Eosinophils % (A) 1 %; HCT 32.2 % (34.0-46.0); HDW 3.04; HGB 10.6 gm/dL (11.4-16.0); Hypochromasia Slight; Luc # (Auto) 0.19; Luc % (Auto) 3; Lymphocytes # (A) 2.1 k/uL (1.0-4.8); Lymphocytes % (A) 32 %; MCH 28.2 pg (25.0-35.0); MCHC 32.9 g/dL (31.0-37.0); MCV 85.5 fL (80.0-100.0); Mean Platelet Volume 7.2; Monocytes # (A) 0.3 k/uL (0-1.0); Monocytes % (A) 4 %; Neutrophils # (A) 3.9 k/uL (1.3-7.7); Neutrophils % (A) 59 %; RBC 3.77 m/uL (3.80-5.40); RDW 14.1 % (11.5-15.5); WBC 6.5 k/uL (3.8-10.6); WBC (Perox) 6.66
[2017-02-01 21:54] LABS: Amylase <30 U/L (30-110); Anion Gap 9 mmol/L; Chloride 107 mmol/L (98-107); Creatine Kinase MB 1.1 ng/mL (0.0-2.4); Glucose 93 mg/dL (74-99); Potassium 3.6 mmol/L (3.5-5.1); Sodium 140 mmol/L (137-145); Total Protein 6.4 g/dL (6.3-8.2); Troponin I <0.012 ng/mL (0.000-0.034)
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
--- NOTE | 2017-02-01 22:56 | XR ---
EXAM: XR Left Knee, 3 views CLINICAL HISTORY: Reason: Pain TECHNIQUE: Three views of the left knee. COMPARISON: No relevant prior studies available. FINDINGS: Bones/joints: No acute fracture. Trace effusion. Soft tissues: No radiodense foreign body. IMPRESSION: No acute fracture.
== END 2017-02-01 23:50 | disposition short-term general hospital (02) ==
LOC: EC 20:55
DX: S81.012A Laceration without foreign body, left knee, initial encounter (principal); S30.1XXA Contusion of abdominal wall, initial encounter; S20.219A Contusion of unspecified front wall of thorax, initial encounter; S09.90XA Unspecified injury of head, initial encounter; T50.901A Poisoning by unspecified drugs, medicaments and biological substances, accidental (unintentional), initial encounter; K13.79 Other lesions of oral mucosa; R00.0 Tachycardia, unspecified; K08.89 Other specified disorders of teeth and supporting structures; I10 Essential (primary) hypertension; F32.9 Major depressive disorder, single episode, unspecified; F41.9 Anxiety disorder, unspecified; Z87.891 Personal history of nicotine dependence; Z79.899 Other long term (current) drug therapy; Z88.1 Allergy status to other antibiotic agents; E66.9 Obesity, unspecified; Z86.19 Personal history of other infectious and parasitic diseases; Z68.41 Body mass index [BMI] 40.0-44.9, adult; Z23 Encounter for immunization; V43.51XA Car driver injured in collision with sport utility vehicle in traffic accident, initial encounter; Y92.410 Unspecified street and highway as the place of occurrence of the external cause
CPT/HCPCS: 36415; 86900; 86901; 80053; 82150; 82550; 82553; 82803; 83605; 83690; 84484; 85025; 85610; 85730; 86850; 81025; 80306; 80320; 71010; 72170; 73562; 72125; 70486; 70450; 71260; 74177; 90715; 99291; 90471; Q9967

== ENCOUNTER 2017-02-11 14:03 | Emergency (ER) | payer OTHER ==
[2017-02-11 14:09] VITALS: BP 128/84; RESP 18; TEMP 98
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
[2017-02-11 14:39] VITALS: PULSE 99
--- NOTE | 2017-02-13 04:13 | CDI ---
Dear Colton Vásquez PA-C: Please do addendum size of the laceration. Thank you, Artur Levin, Club Waiter/Waitress. If you have any questions, please contact Plant Pathologist at [phone]. [facility]
== END 2017-02-11 14:38 | disposition home or self-care (01) ==
LOC: EC 14:03
DX: S81.012D Laceration without foreign body, left knee, subsequent encounter (principal); I10 Essential (primary) hypertension; F32.9 Major depressive disorder, single episode, unspecified; F41.9 Anxiety disorder, unspecified; Z87.891 Personal history of nicotine dependence; Z79.899 Other long term (current) drug therapy; Z88.1 Allergy status to other antibiotic agents; V49.9XXD Car occupant (driver) (passenger) injured in unspecified traffic accident, subsequent encounter
CPT/HCPCS: 99283

== ENCOUNTER 2017-08-09 16:53 | Emergency (ER) | payer OTHER ==
[2017-08-09 16:58] VITALS: RESP 18; TEMP 97.7
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
--- NOTE | 2017-08-09 17:40 | XR ---
Left knee HISTORY: Left knee pain 3 views of the left knee correlated to prior 02/01/2017 Bone mineralization, joint spaces and alignment are stable. No evident joint effusion. IMPRESSION: Stable exam, no acute abnormality, no acute fracture or dislocation.
[2017-08-09 18:27] VITALS: BP 121/79; PULSE 97
== END 2017-08-09 18:25 | disposition home or self-care (01) ==
LOC: EC 16:53
DX: M25.562 Pain in left knee (principal); I10 Essential (primary) hypertension; F32.9 Major depressive disorder, single episode, unspecified; F41.9 Anxiety disorder, unspecified; Z86.14 Personal history of Methicillin resistant Staphylococcus aureus infection; Z87.891 Personal history of nicotine dependence; Z79.899 Other long term (current) drug therapy; Z88.1 Allergy status to other antibiotic agents; Z88.5 Allergy status to narcotic agent
CPT/HCPCS: 73562; 99283; L1830

== ENCOUNTER 2018-05-20 12:12 | Emergency (ER) | payer OTHER ==
[2018-05-20 12:25] VITALS: TEMP 97.8
[2018-05-20] MEDS ORDERED: ONDANSETRON 4 MG/2 ML VIAL IVP STA (12:44)
[2018-05-20] MEDS ORDERED: SODIUM CHLORIDE 0.9% 1,000 ML IV STA (12:44)
[2018-05-20] MEDS ORDERED: KETOROLAC 30 MG/ML 1 ML VIAL IVP STA (12:44)
--- NOTE | 2018-05-20 12:51 | ED ---
General Adult HPI - General Chief complaint: Abdominal Pain Stated complaint: OVARY PAIN, VOMITING Time Seen by Provider: 05/20/18 12:40 Source: patient, RN notes reviewed Mode of arrival: ambulatory Limitations: no limitations - History of Present Illness Initial comments: Patient is a 32-year-old female presented to the emergency room today with a chief complaint of abdominal pain with nausea vomiting. Patient states that symptoms started last night. She states a sharp pain located left lower quadrant. She states that it does remind her of ovarian cyst that she's had in the past. Admits that she's had multiple episodes of nausea vomiting. Patient denies any other complaints. Patient denies any recent fever, chills, shortness of breath, chest pain, back pain, numbness or tingling, headaches or visual changes, or any other complaints. - Related Data Home Medications Medication Instructions Recorded Confirmed Omeprazole 20 mg PO BID 02/03/16 02/01/17 Amitriptyline HCl [Elavil] 100 mg PO HS 12/17/16 02/01/17 Acyclovir 400 mg PO BID 01/31/17 02/01/17 Amitriptyline HCl 25 mg PO HS 01/31/17 02/01/17 Furosemide [Lasix] 40 mg PO DAILY 01/31/17 02/01/17 Loratadine [Claritin] 10 mg PO DAILY 01/31/17 02/01/17 Potassium Chloride ER [K-Dur 10] 10 meq PO DAILY 01/31/17 02/01/17 Pregabalin [Lyrica] 100 mg PO TID 01/31/17 02/01/17 FLUoxetine HCL [PROzac] 60 mg PO DAILY 02/01/17 02/01/17 Previous Rx's Medication Instructions Recorded Ibuprofen [Motrin] 800 mg PO Q8H PRN #0 tab 02/08/16 Cephalexin [Keflex] 500 mg PO Q12HR 7 Days cap 02/11/17 Ibuprofen [Motrin] 600 mg PO Q6HR PRN #40 day 08/09/17 Allergies Allergy/AdvReac Type Severity Reaction Status Date / Time ciprofloxacin Allergy Anaphylaxis Verified 05/20/18 12:25 codeine Allergy Rash/Hives Verified 05/20/18 12:25 Review of Systems ROS Statement: Those systems with pertinent positive or pertinent negative responses have been documented in the HPI. ROS Other: All systems not noted in ROS Statement are negative. Past Medical History Past Medical History: Hypertension Additional Past Medical History / Comment(s): MRSA 2016, staph 2010 History of Any Multi-Drug Resistant Organisms: MRSA Date of last positivie culture/infection: 2016 MDRO Source:: left chest Past Surgical History: Tubal Ligation Additional Past Surgical History / Comment(s): right foot bunionectomy Past Anesthesia/Blood Transfusion Reactions: No Reported Reaction Past Psychological History: Anxiety, Depression Smoking Status: Current every day smoker Past Alcohol Use History: None Reported Past Drug Use History: Cocaine General Exam - General Exam Comments Initial Comments: General: The patient is awake and alert, in no distress, and does not appear acutely ill. Eye: There is normal conjunctiva bilaterally. No signs of icterus. Ears, nose, mouth and throat: There are moist mucous membranes and no oral lesions. Neck: The neck is supple, there is no tenderness or JVD. Cardiovascular: There is a regular rate and rhythm. No murmur, rub or gallop is appreciated. Respiratory: Lungs are clear to auscultation, respirations are non-labored, breath sounds are equal. No wheezes, stridor, rales, or rhonchi. Gastrointestinal: Admits soft on palpation. Mild tenderness left lower quadrant. No rebound, guarding or CVA tenderness. Musculoskeletal: Normal ROM, no tenderness. Neurological: A&O x 3. CN II-XII intact, There are no obvious motor or sensory deficits. Coordination appears grossly intact. Speech is normal. Skin: Skin is warm and dry and no rashes or lesions are noted. Psychiatric: Cooperative, appropriate mood & affect, normal judgment. Limitations: no limitations Course Vital Signs 05/20/18 05/20/18 12:24 14:17 Temperature 97.8 F 97.8 F Pulse Rate 101 H 84 Respiratory 16 18 Rate Blood Pressure 142/97 117/91 O2 Sat by Pulse 99 99 Oximetry Medical Decision Making - Medical Decision Making Patient's labs have been reviewed. Patient's test was negative. No sign of infection urinalysis. Patient's ultrasound was performed. Prior to results being read by radiologist patient stated that she needed to leave to go somewhere. Patient did sign out AMA. She did advise nursing staff that she needed to go. She was advised that we could not tell her results of her ultrasound at that time. Ultrasound was followed up and does not clearly show left ovary. Patient was experiencing left-sided abdominal pain. Nursing staff did call patient and informed her that if pain is persistent that she should return here to the emergency room. Patient did state that she would come back here to the emergency room. - Lab Data Result diagrams: 05/20/18 10:36 05/20/18 10:36 Lab Results 05/20/18 05/20/18 05/20/18 Range/Units 10:36 10:36 10:36 WBC 8.0 (3.8-10.6) k/uL RBC 4.82 (3.80-5.40) m/uL Hgb 12.4 (11.4-16.0) gm/dL Hct 40.2 (34.0-46.0) % MCV 83.4 (80.0-100.0) fL MCH 25.7 (25.0-35.0) pg MCHC 30.8 L (31.0-37.0) g/dL RDW 14.5 (11.5-15.5) % Plt Count 240 (150-450) k/uL Neutrophils % 81 % Lymphocytes % 10 % Monocytes % 3 % Eosinophils % 4 % Basophils % 0 % Neutrophils # 6.5 (1.3-7.7) k/uL Lymphocytes # 0.8 L (1.0-4.8) k/uL Monocytes # 0.3 (0-1.0) k/uL Eosinophils # 0.4 (0-0.7) k/uL Basophils # 0.0 (0-0.2) k/uL Hypochromasia Slight Sodium 139 (137-145) mmol/L Potassium 4.3 (3.5-5.1) mmol/L Chloride 108 H (98-107) mmol/L Carbon Dioxide 22 (22-30) mmol/L Anion Gap 9 mmol/L BUN 24 H (7-17) mg/dL Creatinine 0.89 (0.52-1.04) mg/dL Est GFR (CKD-EPI)AfAm >90 (>60 ml/min/1.73 sqM) Est GFR (CKD-EPI)NonAf 87 (>60 ml/min/1.73 sqM) Glucose 132 H (74-99) mg/dL Calcium 8.8 (8.4-10.2) mg/dL Total Bilirubin 1.0 (0.2-1.3) mg/dL AST 17 (14-36) U/L ALT 19 (9-52) U/L Alkaline Phosphatase 64 (38-126) U/L Total Protein 6.7 (6.3-8.2) g/dL Albumin 3.9 (3.5-5.0) g/dL Amylase 45 (30-110) U/L Lipase 225 (23-300) U/L Urine Color Urine Appearance (Clear) Urine pH (5.0-8.0) Ur Specific [place] (1.001-1.035) Urine Protein (Negative) Urine Glucose (UA) (Negative) Urine Ketones (Negative) Urine Blood (Negative) Urine Nitrite (Negative) Urine Bilirubin (Negative) Urine Urobilinogen (<2.0) mg/dL Ur Leukocyte Esterase (Negative) Urine RBC (0-5) /hpf Urine WBC (0-5) /hpf Ur Squamous Epith Cells (0-4) /hpf Urine Mucus (None) /hpf Urine HCG, Qual Not Detected (Not Detectd) 05/20/18 Range/Units 10:36 WBC (3.8-10.6) k/uL RBC (3.80-5.40) m/uL Hgb (11.4-16.0) gm/dL Hct (34.0-46.0) % MCV (80.0-100.0) fL MCH (25.0-35.0) pg MCHC (31.0-37.0) g/dL RDW (11.5-15.5) % Plt Count (150-450) k/uL Neutrophils % % Lymphocytes % % Monocytes % % Eosinophils % % Basophils % % Neutrophils # (1.3-7.7) k/uL Lymphocytes # (1.0-4.8) k/uL Monocytes # (0-1.0) k/uL Eosinophils # (0-0.7) k/uL Basophils # (0-0.2) k/uL Hypochromasia Sodium (137-145) mmol/L Potassium (3.5-5.1) mmol/L Chloride (98-107) mmol/L Carbon Dioxide (22-30) mmol/L Anion Gap mmol/L BUN (7-17) mg/dL Creatinine (0.52-1.04) mg/dL Est GFR (CKD-EPI)AfAm (>60 ml/min/1.73 sqM) Est GFR (CKD-EPI)NonAf (>60 ml/min/1.73 sqM) Glucose (74-99) mg/dL Calcium (8.4-10.2) mg/dL Total Bilirubin (0.2-1.3) mg/dL AST (14-36) U/L ALT (9-52) U/L Alkaline Phosphatase (38-126) U/L Total Protein (6.3-8.2) g/dL Albumin (3.5-5.0) g/dL Amylase (30-110) U/L Lipase (23-300) U/L Urine Color Yellow Urine Appearance Cloudy H (Clear) Urine pH 6.0 (5.0-8.0) Ur Specific [place] 1.036 H (1.001-1.035) Urine Protein 1+ H (Negative) Urine Glucose (UA) Negative (Negative) Urine Ketones Negative (Negative) Urine Blood Negative (Negative) Urine Nitrite Negative (Negative) Urine Bilirubin Negative (Negative) Urine Urobilinogen 2.0 (<2.0) mg/dL Ur Leukocyte Esterase Trace H (Negative) Urine RBC 1 (0-5) /hpf Urine WBC 3 (0-5) /hpf Ur Squamous Epith Cells 44 H (0-4) /hpf Urine Mucus Many H (None) /hpf Urine HCG, Qual (Not Detectd) Disposition Clinical Impression: Abdominal pain Disposition: Left Against Medical Advice Condition: Undetermined Is patient prescribed a controlled substance at d/c from ED?: No Referrals: Baron Salmeron Jr, [Primary Care Provider] - 1-2 days
[2018-05-20 13:33] LABS: Basophils % (A) 0 %; Eosinophils # (A) 0.4 k/uL (0-0.7); Eosinophils % (A) 4 %; HCT 40.2 % (34.0-46.0); HGB 12.4 gm/dL (11.4-16.0); Hypochromasia Slight; Lymphocytes # (A) 0.8 k/uL (1.0-4.8); Lymphocytes % (A) 10 %; MCH 25.7 pg (25.0-35.0); MCHC 30.8 g/dL (31.0-37.0); MCV 83.4 fL (80.0-100.0); Mean Platelet Volume 7.6; Monocytes # (A) 0.3 k/uL (0-1.0); Monocytes % (A) 3 %; Neutrophils # (A) 6.5 k/uL (1.3-7.7); Neutrophils % (A) 81 %; Platelet Count 240 k/uL (150-450); RBC 4.82 m/uL (3.80-5.40); RDW 14.5 % (11.5-15.5)
[2018-05-20 13:39] LABS: ALT 19 U/L (9-52); AST 17 U/L (14-36); Albumin 3.9 g/dL (3.5-5.0); Alkaline Phosphatase 64 U/L (38-126); Amylase 45 U/L (30-110); Anion Gap 9 mmol/L; Blood Urea Nitrogen 24 mg/dL (7-17); Calcium 8.8 mg/dL (8.4-10.2); Carbon Dioxide 22 mmol/L (22-30); Chloride 108 mmol/L (98-107); Glucose 132 mg/dL (74-99); Lipase 225 U/L (23-300); Potassium 4.3 mmol/L (3.5-5.1); Sodium 139 mmol/L (137-145); Total Protein 6.7 g/dL (6.3-8.2)
[2018-05-20 13:53] LABS: Appearance,Urine Cloudy (Clear); Bilirubin,Urine Negative (Negative); Blood,Urine Negative (Negative); Color,Urine Yellow; Glucose,Urine (UA) Negative (Negative); Ketones,Urine Negative (Negative); Leukocyte Esterase,Urine Trace (Negative); Mucus,Urine Many /hpf; Nitrite,Urine Negative (Negative); Protein,Urine 1+ (Negative); RBC,Urine 1 /hpf (0-5); Specific Gravity,Urine 1.036 (1.001-1.035); Squamous Epithelial Cell,Urine 44 /hpf (0-4); WBC,Urine 3 /hpf (0-5)
[2018-05-20 14:20] VITALS: BP 117/91; PULSE 84; RESP 18
--- NOTE | 2018-05-20 14:33 | US ---
EXAMINATION TYPE: US transvaginal. Plus Doppler DATE OF EXAM: 05/20/2018 COMPARISON: 11/29/2014 CLINICAL HISTORY: 32-year-old female pain. TECHNIQUE: Transvaginal (TV). Color Doppler and spectral waveform analysis of the ovarian arteries a nd veins. Date of LMP: 05/07/18 FINDINGS: EXAM MEASUREMENTS: Uterus: 8.4 x 4.5 x 4.9cm Endometrial Stripe: 1.4 cm Right Ovary: 2.7 x 1.9 x 1.7 cm Left Ovary: obscured by overlying bowel gas 1. Uterus: Retroverted 2. Endometrium: Upper limits of normal in thickness. 3. Right Ovary: wnl, fluid surrounding 4. Left Ovary: obscured by overlying bowel gas Spectral, color and waveform doppler imaging shows good arterial and venous flow within the RIGHT o vary; there is no evidence for RIGHT ovarian torsion. LEFT not seen 5. Bilateral Adnexa: wnl 6. Posterior cul-de-sac: Small to moderate amount of ff. IMPRESSION: 1. Endometrial stripe measures at the upper limits of normal in thickness and should correspond to th e secretory phase of the menstrual cycle. 2. Small to moderate amount of cul-de-sac free fluid extending into the right adnexa. Clinically cor relate as to etiology. 3. Normal-appearing right ovary without evidence for ovarian torsion. 4. The left ovary could not be visualized and is not assessed.
== END 2018-05-20 14:17 | disposition left against medical advice (07) ==
LOC: EC 12:12
DX: R10.9 Unspecified abdominal pain (principal); R11.2 Nausea with vomiting, unspecified; Z32.02 Encounter for pregnancy test, result negative; I10 Essential (primary) hypertension; F41.9 Anxiety disorder, unspecified; F32.9 Major depressive disorder, single episode, unspecified; F17.200 Nicotine dependence, unspecified, uncomplicated; Z79.899 Other long term (current) drug therapy; Z88.5 Allergy status to narcotic agent; Z88.1 Allergy status to other antibiotic agents
CPT/HCPCS: 36415; 80053; 82150; 83690; 85025; 81001; 81025; 93976; 76830; 99284; 96374; 96375; 96361; J2405; J1885

== ENCOUNTER 2018-05-20 18:44 | Emergency (ER) | payer OTHER ==
[2018-05-20] MEDS ORDERED: ONDANSETRON ODT 4 MG TAB PO STA (19:29)
[2018-05-20] MEDS ORDERED: HYDROcodone/APAP 5-325MG 1 EACH TAB PO STA (19:29)
--- NOTE | 2018-05-20 21:04 | US ---
EXAMINATION TYPE: US transvaginal DATE OF EXAM: 05/20/2018 COMPARISON: NONE CLINICAL HISTORY: Pain. LLQ pain had u/s earlier couldn't visualize left ovary re attempt tonight. TECHNIQUE: Transvaginal (TV). Transabdominal sonographic images of the pelvis were acquired. Trans vaginal sonographic images were medically necessary to better assess the following anatomy: EXAM MEASUREMENTS: Uterus: 8.6 x 4.1 x cm Endometrial Stripe: 1.7 cm Right Ovary: 3.5 x 1.9 x 2.8 cm 1. Uterus: Anteverted wnl 2. Endometrium: upper limits 3. Right Ovary: wnl 4. Left Ovary: Obscured by overlying bowel gas Spectral, color and waveform doppler imaging shows good arterial and venous flow within the right o vary; there is no evidence for ovarian torsion. 5. Bilateral Adnexa: wnl 6. Posterior cul-de-sac: wnl Unable to visualize left ovary. IMPRESSION: No adnexal mass or free fluid. We could not identify the left ovary. Normal uterus and en dometrium. No adverse change compared to exam earlier today.
--- NOTE | 2018-05-20 21:46 | ED ---
Abdominal Pain HPI - General Chief Complaint: Abdominal Pain Stated Complaint: OVARY PAIN Time Seen by Provider: 05/20/18 19:12 Source: patient Mode of arrival: ambulatory Limitations: no limitations - History of Present Illness Initial Comments: 32-year-old female patient presents to the emergency department today for evaluation of left lower quadrant abdominal pain. Patient states that symptoms started a couple of days ago. States it is sharp in nature and does radiate into her back. Patient states that last night the pain is so bad she had multiple episodes of vomiting with this. Patient was seen and evaluated here in the emergency department earlier today did have labs and ultrasound performed. Patient had to leave before ultrasound results were back, she was called and informed that the left ovary was not visualized on ultrasound that if she continued to have problems she should return. Patient states the pain persisted so she returned for further evaluation. She denies any current nausea or vomiting. States her pain is a 6 out of 10 on the pain scale. Denies any abnormal vaginal bleeding or discharge. Denies any chance of . Denies any concern for sexually transmitted infections. Denies any hematuria, dysuria, urinary frequency, urinary urgency. Patient denies any recent rash, fever, chills, shortness breath, chest pain, diarrhea, constipation , back pain, numbness, tingling, dizziness, weakness, headache, visual changes, or any other complaints. - Related Data Home Medications Medication Instructions Recorded Confirmed Omeprazole Magnesium [PriLOSEC OTC] 20 mg PO DAILY 05/20/18 05/20/18 Previous Rx's Medication Instructions Recorded Hydrocodone/Acetaminophen [[place] 1 tab PO Q6HR PRN #12 tab 05/20/18 5-325] Allergies Allergy/AdvReac Type Severity Reaction Status Date / Time ciprofloxacin Allergy Unknown Verified 05/20/18 19:04 codeine Allergy Rash/Hives Verified 05/20/18 19:04 amoxicillin AdvReac Anaphylaxis Verified 05/20/18 19:04 Review of Systems ROS Statement: Those systems with pertinent positive or pertinent negative responses have been documented in the HPI. ROS Other: All systems not noted in ROS Statement are negative. Past Medical History Past Medical History: Hypertension Additional Past Medical History / Comment(s): MRSA 2015, staph 2009 History of Any Multi-Drug Resistant Organisms: MRSA Date of last positivie culture/infection: 2015 MDRO Source:: left chest Past Surgical History: Tubal Ligation Additional Past Surgical History / Comment(s): right foot bunionectomy Past Anesthesia/Blood Transfusion Reactions: No Reported Reaction Past Psychological History: Anxiety, Depression Smoking Status: Current every day smoker Past Alcohol Use History: None Reported Past Drug Use History: Cocaine General Exam Limitations: no limitations General appearance: alert, in no apparent distress, other (This is a well- developed, well-nourished adult female patient in no acute distress. Vital signs upon presentation are temperature 97.8F, pulse 108, respirations 16, blood pressure 103/65, pulse ox 98% on room air.) Eye exam: Present: normal appearance, PERRL, EOMI. Absent: scleral icterus, conjunctival injection, periorbital swelling ENT exam: Present: normal exam, normal oropharynx, mucous membranes moist Respiratory exam: Present: normal lung sounds bilaterally. Absent: respiratory distress, wheezes, rales, rhonchi, stridor Cardiovascular Exam: Present: regular rate, normal rhythm, normal heart sounds. Absent: systolic murmur, diastolic murmur, rubs, gallop, clicks GI/Abdominal exam: Present: soft, tenderness (Left lower quadrant tenderness.), normal bowel sounds. Absent: distended, guarding, rebound, rigid Neurological exam: Present: alert, oriented X3, CN II-XII intact Psychiatric exam: Present: normal affect, normal mood Skin exam: Present: warm, dry, intact, normal color. Absent: rash Course Vital Signs 05/20/18 05/20/18 18:46 23:11 Temperature 97.8 F 98.1 F Pulse Rate 108 H 93 Respiratory 16 18 Rate Blood Pressure 103/65 125/97 O2 Sat by Pulse 98 97 Oximetry Medical Decision Making - Medical Decision Making 32-year-old female patient presented to the emergency department today for revisit after being discharged with pelvic pain earlier in the day. Physical examination did reveal tenderness over the left lower quadrant abdomen. We did repeat ultrasound as the first ultrasound was a limited study due to overlying bowel gas obscuring view of the left ovary. Repeat ultrasound showed similar findings with bowel gas obscuring the left ovary. We did obtain CT abdomen and pelvis with contrast at that time. There was a small 1.2 cm cyst on the left ovary with some free fluid in the cul-de-sac. Did discuss findings and results with the patient. We did discuss possibility of an involuting cyst as a cause for her pain. She is instructed to follow-up with her rocket motor mechanic for recheck as soon as possible. She'll be given prescription for pain medication. Return parameters were discussed in detail. She verbalizes understanding and agrees with this plan - Radiology Data Radiology results: report reviewed, image reviewed Transvaginal ultrasound of the pelvis was obtained. Report was reviewed in its entirety. Impression by Dr. Palmer shows no adnexal mass or free fluid. We could not identify left ovary. Normal uterus and endometrium. No adverse change compared to exam earlier today. CT abdomen and pelvis with contrast was obtained. Report was reviewed in its entirety. Impression by Dr. Palmer shows some free fluid in the cul-de-sac. Otherwise negative computed tomography scan of the abdomen and pelvis. Disposition Clinical Impression: Ovarian cyst Disposition: HOME SELF-CARE Condition: Good Instructions: Ovarian Cyst (ED) Additional Instructions: Take medication as directed. Follow-up through primary care physician or rocket motor mechanic for recheck as soon as possible. Return immediately for any new, worsening, or concerning symptoms. OPIOID NOTICE: Patient was prescribed and given [place] for pain control for an acute illness. This will show positive on any urine drug screen testing for opiates. If you have any questions you may call the emergency department at [phone]. Prescriptions: Hydrocodone/Acetaminophen [[place] 5-325] 1 tab PO Q6HR PRN #12 tab PRN Reason: Pain Is patient prescribed a controlled substance at d/c from ED?: No Referrals: Baron Salmeron Jr, [Primary Care Provider] - 1-2 days Time of Disposition: 22:41
--- NOTE | 2018-05-20 22:31 | CT ---
EXAMINATION TYPE: CT abdomen pelvis w con DATE OF EXAM: 05/20/2018 COMPARISON: 02/01/2017 HISTORY: LLQ pain CT DLP: 1234.2 mGycm Automated exposure control for dose reduction was used. TECHNIQUE: Helical acquisition of images was performed from the lung bases through the pelvis. CONTRAST: Performed without Oral Contrast and with IV Contrast, patient injected with 100 mL of Isovue 300. FINDINGS: Lung bases are clear. There is no pleural effusion. Heart size is normal. There is no pericardial eff usion Stomach appears normal. There is a 5 mm calcified gallstone. Bile ducts are not dilated. Liver shows no focal defect. Spleen is enlarged and measures 14 cm. There is no pancreatic mass. There is no adre nal mass. Kidneys show satisfactory contrast opacification. There is no hydronephrosis. There is no r etroperitoneal adenopathy. Ureters are not dilated. Bladder distends smoothly. There is no inguinal hernia. There is free fluid in the cul-de-sac. There are clips from tubal ligation. There is no evidence of a pelvic mass. There is probably a 12 mm cyst on the left ovary. Appendix appears normal. There is no mesenteric edema or adenopathy. There is no evidence of a bowel obstruction. Lumbar spine is intact. Bony pelvis is intact. IMPRESSION: THERE IS SOME FREE FLUID IN THE CUL-DE-SAC. OTHERWISE NEGATIVE CT SCAN OF THE ABDOMEN AND PELVIS..
[2018-05-20] MEDS ORDERED: ONDANSETRON 4 MG ODT STARTER PACK 2 TAB BTL PO STA (22:47)
[2018-05-20] MEDS ORDERED: ACET/COD 300 MG/30 MG STARTER PACK 6 TAB BTL PO STA (22:47)
[2018-05-20 23:14] VITALS: BP 125/97; PULSE 93; RESP 18; TEMP 98.1
== END 2018-05-20 23:17 | disposition home or self-care (01) ==
LOC: EC 18:44
DX: N83.202 Unspecified ovarian cyst, left side (principal); F17.200 Nicotine dependence, unspecified, uncomplicated; Z88.0 Allergy status to penicillin; Z88.1 Allergy status to other antibiotic agents; Z88.5 Allergy status to narcotic agent; Z79.899 Other long term (current) drug therapy; Z86.14 Personal history of Methicillin resistant Staphylococcus aureus infection; Z98.51 Tubal ligation status
CPT/HCPCS: 93976; 76830; 74177; 99284; S0119; Q9967

== ENCOUNTER 2019-05-02 12:32 | Emergency (ER) | payer OTHER ==
[2019-05-02] MEDS ORDERED: ACETAMINOPHEN TAB 500 MG TAB PO STA (13:06)
--- NOTE | 2019-05-02 13:27 | ED ---
General Adult HPI - General Chief complaint: Syncope Stated complaint: Syncope, vomiting, back pain Time Seen by Provider: 05/02/19 12:43 Source: patient, RN notes reviewed Mode of arrival: ambulatory Limitations: no limitations - History of Present Illness Initial comments: 33-year-old female presents to the emergency department for a chief complaint of syncope. Patient states that for the past week she has not follow-up. States that she initially had some right flank pain associated with dysuria. States the pain then became left flank pain a few days ago. States she has been nauseous and vomiting as well. No real abdominal pain. States that she has had chills but is not aware of having fevers. Patient was at work today when she started feeling lightheaded and fell backwards and believes she had an episode of syncope.Patient has no other complaints at this time including shortness of breath, chest pain, abdominal pain,headache, or visual changes. - Related Data Home Medications Medication Instructions Recorded Confirmed Omeprazole Magnesium [PriLOSEC OTC] 20 mg PO DAILY 05/20/18 05/20/18 Previous Rx's Medication Instructions Recorded Hydrocodone/Acetaminophen [[place] 1 tab PO Q6HR PRN #12 tab 05/20/18 5-325] Sulfamethox-Tmp 800-160Mg [Bactrim 1 tab PO Q12HR #28 tab 05/02/19 DS 800-160 mg] Allergies Allergy/AdvReac Type Severity Reaction Status Date / Time ciprofloxacin Allergy Unknown Verified 05/02/19 12:33 codeine Allergy Rash/Hives Verified 05/02/19 12:33 amoxicillin AdvReac Anaphylaxis Verified 05/02/19 12:33 Review of Systems ROS Statement: Those systems with pertinent positive or pertinent negative responses have been documented in the HPI. ROS Other: All systems not noted in ROS Statement are negative. Past Medical History Past Medical History: Hypertension Additional Past Medical History / Comment(s): MRSA 2016, staph 2009 History of Any Multi-Drug Resistant Organisms: MRSA Date of last positivie culture/infection: 2016 MDRO Source:: left chest Past Surgical History: Tubal Ligation Additional Past Surgical History / Comment(s): right foot bunionectomy Past Anesthesia/Blood Transfusion Reactions: No Reported Reaction Past Psychological History: Anxiety, Depression Smoking Status: Current every day smoker Past Alcohol Use History: None Reported Past Drug Use History: Cocaine General Exam Limitations: no limitations General appearance: alert, in no apparent distress Head exam: Present: atraumatic, normocephalic, normal inspection Eye exam: Present: normal appearance, PERRL, EOMI. Absent: scleral icterus, conjunctival injection, periorbital swelling ENT exam: Present: normal exam, mucous membranes moist Neck exam: Present: normal inspection, full ROM. Absent: tenderness, meningismus, lymphadenopathy Respiratory exam: Present: normal lung sounds bilaterally. Absent: respiratory distress, wheezes, rales, rhonchi, stridor Cardiovascular Exam: Present: regular rate, normal rhythm, normal heart sounds. Absent: systolic murmur, diastolic murmur, rubs, gallop, clicks GI/Abdominal exam: Present: soft, normal bowel sounds. Absent: distended, tend erness, guarding, rebound, rigid Back exam: Present: CVA tenderness (R), CVA tenderness (L) Course Vital Signs 05/02/19 05/02/19 12:33 15:07 Temperature 99.3 F 100.3 F H Pulse Rate 114 H 97 Respiratory 20 16 Rate Blood Pressure 113/73 113/71 O2 Sat by Pulse 96 100 Oximetry Medical Decision Making - Medical Decision Making 33-year-old female presents to the emergency department for a chief complaint of dysuria. Patient is noted to be febrile with a temperature of 103 here in the emergency department. However this did improve to 100.3 after fluids and Tylenol. Tachycardia was likely reflexive to fever. CBC CMP unremarkable. Urinalysis shows 132 white blood cells with few white blood cell clumps. I did have to call lab as the rest of the urine was resulted however the white blood cells were left out of the results. CT abdomen and pelvis show findings felt to reflect right-sided pyelonephritis. Chest x-ray shows no acute cardio pulmonary process. Patient was given 2 L of fluids. Patient apparently has an anaphylactic ALLERGY to amoxicillin and an unknown ALLERGY to Cipro. Patient is unaware of this and is not sure if this is from her childhood. Her patient was given Bactrim. Patient does state that she will have difficulty paying for this also be sent to [place] where the prescription will be free. I discussed that if patient has worsening symptoms or fevers continue she needs to return to the emergency department for IV antibiotics. Over at this time antibiotic choices are limited by patient's unknown ALLERGIES including anaphylactic reactions. - Lab Data Result diagrams: 05/02/19 13:06 05/02/19 13:06 Lab Results 05/02/19 05/02/19 05/02/19 Range/Units 13:06 13:06 13:06 WBC 7.6 (3.8-10.6) k/uL RBC 4.08 (3.80-5.40) m/uL Hgb 10.5 L (11.4-16.0) gm/dL Hct 32.9 L (34.0-46.0) % MCV 80.6 (80.0-100.0) fL MCH 25.6 (25.0-35.0) pg MCHC 31.8 (31.0-37.0) g/dL RDW 14.8 (11.5-15.5) % Plt Count 222 (150-450) k/uL Neutrophils % 81 % Lymphocytes % 10 % Monocytes % 6 % Eosinophils % 0 % Basophils % 0 % Neutrophils # 6.1 (1.3-7.7) k/uL Lymphocytes # 0.8 L (1.0-4.8) k/uL Monocytes # 0.5 (0-1.0) k/uL Eosinophils # 0.0 (0-0.7) k/uL Basophils # 0.0 (0-0.2) k/uL Hypochromasia Slight PT (9.0-12.0) sec INR (<1.2) APTT (22.0-30.0) sec Sodium 136 L (137-145) mmol/L Potassium 4.4 (3.5-5.1) mmol/L Chloride 102 (98-107) mmol/L Carbon Dioxide 25 (22-30) mmol/L Anion Gap 9 mmol/L BUN 11 (7-17) mg/dL Creatinine 1.08 H (0.52-1.04) mg/dL Est GFR (CKD-EPI)AfAm 79 (>60 ml/min/1.73 sqM) Est GFR (CKD-EPI)NonAf 69 (>60 ml/min/1.73 sqM) Glucose 111 H (74-99) mg/dL Plasma Lactic Acid Dar 1.0 (0.7-2.0) mmol/L Calcium 9.2 (8.4-10.2) mg/dL Total Bilirubin 0.9 (0.2-1.3) mg/dL AST 16 (14-36) U/L ALT 12 (9-52) U/L Alkaline Phosphatase 70 (38-126) U/L Total Protein 7.0 (6.3-8.2) g/dL Albumin 4.0 (3.5-5.0) g/dL Urine Color Urine Appearance (Clear) Urine pH (5.0-8.0) Ur Specific [place] (1.001-1.035) Urine Protein (Negative) Urine Glucose (UA) (Negative) Urine Ketones (Negative) Urine Blood (Negative) Urine Nitrite (Negative) Urine Bilirubin (Negative) Urine Urobilinogen (<2.0) mg/dL Ur Leukocyte Esterase (Negative) Urine RBC (0-5) /hpf Urine WBC (0-5) /hpf Urine WBC Clumps (None) /hpf Ur Squamous Epith Cells (0-4) /hpf Urine Bacteria (None) /hpf Urine Mucus (None) /hpf Urine Yeast (Budding) (None) /hpf Urine HCG, Qual (Not Detectd) Influenza Type A RNA (Not Detectd) Influenza Type B (PCR) (Not Detectd) 05/02/19 05/02/19 05/02/19 Range/Units 13:06 13:40 13:40 WBC (3.8-10.6) k/uL RBC (3.80-5.40) m/uL Hgb (11.4-16.0) gm/dL Hct (34.0-46.0) % MCV (80.0-100.0) fL MCH (25.0-35.0) pg MCHC (31.0-37.0) g/dL RDW (11.5-15.5) % Plt Count (150-450) k/uL Neutrophils % % Lymphocytes % % Monocytes % % Eosinophils % % Basophils % % Neutrophils # (1.3-7.7) k/uL Lymphocytes # (1.0-4.8) k/uL Monocytes # (0-1.0) k/uL Eosinophils # (0-0.7) k/uL Basophils # (0-0.2) k/uL Hypochromasia PT 9.9 (9.0-12.0) sec INR 0.9 (<1.2) APTT 29.0 (22.0-30.0) sec Sodium (137-145) mmol/L Potassium (3.5-5.1) mmol/L Chloride (98-107) mmol/L Carbon Dioxide (22-30) mmol/L Anion Gap mmol/L BUN (7-17) mg/dL Creatinine (0.52-1.04) mg/dL Est GFR (CKD-EPI)AfAm (>60 ml/min/1.73 sqM) Est GFR (CKD-EPI)NonAf (>60 ml/min/1.73 sqM) Glucose (74-99) mg/dL Plasma Lactic Acid Dar (0.7-2.0) mmol/L Calcium (8.4-10.2) mg/dL Total Bilirubin (0.2-1.3) mg/dL AST (14-36) U/L ALT (9-52) U/L Alkaline Phosphatase (38-126) U/L Total Protein (6.3-8.2) g/dL Albumin (3.5-5.0) g/dL Urine Color Urine Appearance (Clear) Urine pH (5.0-8.0) Ur Specific [place] (1.001-1.035) Urine Protein (Negative) Urine Glucose (UA) (Negative) Urine Ketones (Negative) Urine Blood (Negative) Urine Nitrite (Negative) Urine Bilirubin (Negative) Urine Urobilinogen (<2.0) mg/dL Ur Leukocyte Esterase (Negative) Urine RBC (0-5) /hpf Urine WBC (0-5) /hpf Urine WBC Clumps (None) /hpf Ur Squamous Epith Cells (0-4) /hpf Urine Bacteria (None) /hpf Urine Mucus (None) /hpf Urine Yeast (Budding) (None) /hpf Urine HCG, Qual Not Detected (Not Detectd) Influenza Type A RNA Not Detected (Not Detectd) Influenza Type B (PCR) Not Detected (Not Detectd) 05/02/19 Range/Units 13:40 WBC (3.8-10.6) k/uL RBC (3.80-5.40) m/uL Hgb (11.4-16.0) gm/dL Hct (34.0-46.0) % MCV (80.0-100.0) fL MCH (25.0-35.0) pg MCHC (31.0-37.0) g/dL RDW (11.5-15.5) % Plt Count (150-450) k/uL Neutrophils % % Lymphocytes % % Monocytes % % Eosinophils % % Basophils % % Neutrophils # (1.3-7.7) k/uL Lymphocytes # (1.0-4.8) k/uL Monocytes # (0-1.0) k/uL Eosinophils # (0-0.7) k/uL Basophils # (0-0.2) k/uL Hypochromasia PT (9.0-12.0) sec INR (<1.2) APTT (22.0-30.0) sec Sodium (137-145) mmol/L Potassium (3.5-5.1) mmol/L Chloride (98-107) mmol/L Carbon Dioxide (22-30) mmol/L Anion Gap mmol/L BUN (7-17) mg/dL Creatinine (0.52-1.04) mg/dL Est GFR (CKD-EPI)AfAm (>60 ml/min/1.73 sqM) Est GFR (CKD-EPI)NonAf (>60 ml/min/1.73 sqM) Glucose (74-99) mg/dL Plasma Lactic Acid Dar (0.7-2.0) mmol/L Calcium (8.4-10.2) mg/dL Total Bilirubin (0.2-1.3) mg/dL AST (14-36) U/L ALT (9-52) U/L Alkaline Phosphatase (38-126) U/L Total Protein (6.3-8.2) g/dL Albumin (3.5-5.0) g/dL Urine Color Yellow Urine Appearance Cloudy H (Clear) Urine pH 7.0 (5.0-8.0) Ur Specific [place] 1.009 (1.001-1.035) Urine Protein 1+ H (Negative) Urine Glucose (UA) Negative (Negative) Urine Ketones Negative (Negative) Urine Blood Small H (Negative) Urine Nitrite Negative (Negative) Urine Bilirubin Negative (Negative) Urine Urobilinogen <2.0 (<2.0) mg/dL Ur Leukocyte Esterase Large H (Negative) Urine RBC 7 H (0-5) /hpf Urine WBC 132 H (0-5) /hpf Urine WBC Clumps Few H (None) /hpf Ur Squamous Epith Cells 7 H (0-4) /hpf Urine Bacteria Rare H (None) /hpf Urine Mucus Rare H (None) /hpf Urine Yeast (Budding) Occasional H (None) /hpf Urine HCG, Qual (Not Detectd) Influenza Type A RNA (Not Detectd) Influenza Type B (PCR) (Not Detectd) Disposition Clinical Impression: Pyelonephritis Disposition: HOME SELF-CARE Condition: Good Instructions (If sedation given, give patient instructions): Kidney Infection (ED) Additional Instructions: Please take antibiotic as directed. This was prescribed to [place]. Drink plenty of fluids. If you have worsening symptoms or continued to have fevers after 48 hours return to the emergency room. Prescriptions: Sulfamethox-Tmp 800-160Mg [Bactrim DS 800-160 mg] 1 tab PO Q12HR #28 tab Is patient prescribed a controlled substance at d/c from ED?: No Referrals: Jovany Aguirre MD [REFERRING] - 1-2 days Time of Disposition: 15:24
[2019-05-02 13:32] LABS: Basophils % (A) 0 %; Eosinophils % (A) 0 %; HCT 32.9 % (34.0-46.0); HGB 10.5 gm/dL (11.4-16.0); Hypochromasia Slight; Lymphocytes # (A) 0.8 k/uL (1.0-4.8); Lymphocytes % (A) 10 %; MCH 25.6 pg (25.0-35.0); MCHC 31.8 g/dL (31.0-37.0); MCV 80.6 fL (80.0-100.0); Mean Platelet Volume 6.9; Monocytes # (A) 0.5 k/uL (0-1.0); Monocytes % (A) 6 %; Neutrophils # (A) 6.1 k/uL (1.3-7.7); Neutrophils % (A) 81 %; Platelet Count 222 k/uL (150-450); RBC 4.08 m/uL (3.80-5.40); RDW 14.8 % (11.5-15.5); WBC 7.6 k/uL (3.8-10.6)
[2019-05-02] MEDS: SODIUM CHLORIDE 0.9% 500 ML 500 ML IV SCH ×2 (13:36→14:01)
[2019-05-02 13:39] LABS: Calcium 9.2 mg/dL (8.4-10.2); Potassium 4.4 mmol/L (3.5-5.1); Total Bilirubin 0.9 mg/dL (0.2-1.3)
[2019-05-02 13:42] LABS: INR 0.9 (<1.2); Prothrombin Time 9.9 sec (9.0-12.0)
[2019-05-02 13:54] LABS: Appearance,Urine Cloudy (Clear); Bacteria,Urine Rare /hpf; Bilirubin,Urine Negative (Negative); Blood,Urine Small (Negative); Budding Yeast,Urine Occasional /hpf; Color,Urine Yellow; Glucose,Urine (UA) Negative (Negative); Ketones,Urine Negative (Negative); Leukocyte Esterase,Urine Large (Negative); Mucus,Urine Rare /hpf; Nitrite,Urine Negative (Negative); Protein,Urine 1+ (Negative); RBC,Urine 7 /hpf (0-5); Specific Gravity,Urine 1.009 (1.001-1.035); Squamous Epithelial Cell,Urine 7 /hpf (0-4); Urobilinogen,Urine <2.0 mg/dL (<2.0)
--- NOTE | 2019-05-02 14:36 | CT ---
EXAMINATION TYPE: CT abdomen pelvis w con DATE OF EXAM: 05/02/2019 COMPARISON: HISTORY: Fever and Left sided pain with urination changes. CT DLP: 1295.4 mGycm CONTRAST: CT scan of the abdomen and pelvis is performed without Oral Contrast and with IV Contrast, patient in jected with 100 mL of Isovue 300. FINDINGS: LUNG BASES-: No visible nodule. No infiltrate. LIVER/GB: No calcified gallstones. No space occupying hepatic lesion. Biliary tree is of normal ca liber. PANCREAS: No inflammation. No distinct mass. SPLEEN: Spleen is enlarged at 13.7 cm in dimension. No lesion seen. ADRENALS: No nodule. No thickening. KIDNEYS/BLADDER: Patchy enhancement of the right kidney noted on the delayed images felt to reflect pyelonephritis. There is mild stranding about the right kidney. No hydronephrosis. No nephrolithiasi s. No distinct renal mass. Urinary bladder grossly unremarkable. No evidence for abscess. BOWEL: Normal appendix. Normal bowel caliber. No inflammation. GENITAL ORGANS: No gross abnormality. LYMPH NODES: No greater than 1cm abdominal or pelvic lymph nodes are appreciated. AORTA: No significant abnormality. OSSEOUS STRUCTURES: No significant abnormality is seen. OTHER: No significant additional abnormality is seen. IMPRESSION: 1. Findings felt to reflect right-sided pyelonephritis.
--- NOTE | 2019-05-02 14:38 | XR ---
EXAMINATION TYPE: XR chest 2V DATE OF EXAM: 05/02/2019 COMPARISON: February 01, 2017 HISTORY: Chest pain TECHNIQUE: Frontal and lateral views of the chest are obtained. FINDINGS: There is no focal air space opacity. No evidence for pneumothorax. No pleural effusion. The cardiac silhouette size is within normal limits. The osseous structures are grossly intact. IMPRESSION: 1. No acute cardiopulmonary process.
[2019-05-02 15:09] VITALS: BP 113/71; PULSE 97; RESP 16; TEMP 100.3
[2019-05-02] MEDS ORDERED: SULFAMETH-TMP DS STARTER PACK 2 TAB BTL PO STA (15:12)
== END 2019-05-02 15:47 | disposition home or self-care (01) ==
LOC: EC 12:32
DX: N12 Tubulo-interstitial nephritis, not specified as acute or chronic (principal); I10 Essential (primary) hypertension; F17.200 Nicotine dependence, unspecified, uncomplicated; Z88.1 Allergy status to other antibiotic agents; Z88.0 Allergy status to penicillin; Z88.5 Allergy status to narcotic agent; Z86.14 Personal history of Methicillin resistant Staphylococcus aureus infection
CPT/HCPCS: 36415; 71046; 74177; 80053; 81001; 81025; 83605; 85025; 85610; 85730; 87040; 87086; 87502; 93005; 96360; 96361; 99284

== ENCOUNTER 2019-05-04 12:49 | Emergency (ER) | payer OTHER ==
[2019-05-04] MEDS ORDERED: KETOROLAC 30 MG/ML 1 ML VIAL IVP STA (13:27)
[2019-05-04] MEDS ORDERED: SODIUM CHLORIDE 0.9% 2,000 ML IV STA (13:27)
[2019-05-04] MEDS ORDERED: ONDANSETRON 4 MG/2 ML VIAL IVP STA (13:27)
[2019-05-04] MEDS ORDERED: diphenhydrAMINE 50 MG/ML 1 ML VIAL IVP STA (13:28)
[2019-05-04] MEDS ORDERED: cefTRIAXone IN SWFI 1,000 MG/10 ML SYRINGE IVP STA (13:28)
[2019-05-04 13:42] LABS: Basophils % (A) 0 %; Eosinophils % (A) 1 %; HCT 33.9 % (34.0-46.0); HGB 10.4 gm/dL (11.4-16.0); Hypochromasia Slight; Lymphocytes % (A) 16 %; MCH 24.9 pg (25.0-35.0); MCHC 30.7 g/dL (31.0-37.0); MCV 81.1 fL (80.0-100.0); Mean Platelet Volume 7.4; Monocytes # (A) 0.3 k/uL (0-1.0); Monocytes % (A) 5 %; Neutrophils # (A) 4.7 k/uL (1.3-7.7); Neutrophils % (A) 76 %; Platelet Count 286 k/uL (150-450); RBC 4.19 m/uL (3.80-5.40); RDW 14.6 % (11.5-15.5); WBC 6.2 k/uL (3.8-10.6)
[2019-05-04 13:46] LABS: Appearance,Urine Cloudy (Clear); Bacteria,Urine Rare /hpf; Bilirubin,Urine Negative (Negative); Blood,Urine Negative (Negative); Color,Urine Yellow; Glucose,Urine (UA) Negative (Negative); Ketones,Urine Negative (Negative); Leukocyte Esterase,Urine Moderate (Negative); Mucus,Urine Occasional /hpf; Nitrite,Urine Negative (Negative); PH, Urine 6.5 (5.0-8.0); Protein,Urine 1+ (Negative); RBC,Urine 10 /hpf (0-5); Specific Gravity,Urine 1.017 (1.001-1.035); Squamous Epithelial Cell,Urine 8 /hpf (0-4); Urobilinogen,Urine <2.0 mg/dL (<2.0)
[2019-05-04 13:51] LABS: Albumin 4.1 g/dL (3.5-5.0); Calcium 9.1 mg/dL (8.4-10.2); Potassium 4.1 mmol/L (3.5-5.1); Total Bilirubin 0.7 mg/dL (0.2-1.3); Total Protein 7.4 g/dL (6.3-8.2)
--- NOTE | 2019-05-04 14:17 | ED ---
General Adult HPI - General Chief complaint: Nausea/Vomiting/Diarrhea Stated complaint: poss allergic reaction Time Seen by Provider: 05/04/19 13:13 Source: patient, RN notes reviewed Limitations: no limitations - History of Present Illness Initial comments: 33-year-old female sent emergency Department chief complaint of nausea vomiting. Patient seen here couple days with diagnosed with urinary tract infection did have some vomiting at that time. Patient was discharged on Bactrim states that this is making her sick at this time. Patient denies any abdominal pain. She has a mild headache no fevers or chills. No flank pain. Denies any chance of . - Related Data Home Medications Medication Instructions Recorded Confirmed Omeprazole Magnesium [PriLOSEC OTC] 20 mg PO DAILY 05/20/18 05/20/18 Previous Rx's Medication Instructions Recorded Hydrocodone/Acetaminophen [[place] 1 tab PO Q6HR PRN #12 tab 05/20/18 5-325] Sulfamethox-Tmp 800-160Mg [Bactrim 1 tab PO Q12HR #28 tab 05/02/19 DS 800-160 mg] Nitrofurantoin Monohyd/M-Cryst 100 mg PO Q12HR #10 cap 05/04/19 [Macrobid] Ondansetron Odt [Zofran Odt] 4 mg PO Q8HR PRN #14 tab 05/04/19 Allergies Allergy/AdvReac Type Severity Reaction Status Date / Time ciprofloxacin Allergy Unknown Verified 05/02/19 12:33 codeine Allergy Rash/Hives Verified 05/02/19 12:33 amoxicillin AdvReac Anaphylaxis Verified 05/02/19 12:33 Review of Systems ROS Statement: Those systems with pertinent positive or pertinent negative responses have been documented in the HPI. ROS Other: All systems not noted in ROS Statement are negative. Past Medical History Past Medical History: Hypertension Additional Past Medical History / Comment(s): MRSA 2016, staph 2009 History of Any Multi-Drug Resistant Organisms: MRSA Date of last positivie culture/infection: 2016 MDRO Source:: left chest Past Surgical History: Tubal Ligation Additional Past Surgical History / Comment(s): right foot bunionectomy Past Anesthesia/Blood Transfusion Reactions: No Reported Reaction Past Psychological History: Anxiety, Depression Smoking Status: Current every day smoker Past Alcohol Use History: Occasional Past Drug Use History: Cocaine General Exam Limitations: no limitations General appearance: alert, in no apparent distress Head exam: Present: atraumatic, normocephalic, normal inspection Eye exam: Present: normal appearance, PERRL, EOMI. Absent: scleral icterus, conjunctival injection, periorbital swelling ENT exam: Present: normal exam, normal oropharynx, mucous membranes moist Neck exam: Present: normal inspection. Absent: tenderness, meningismus, lymphadenopathy Respiratory exam: Present: normal lung sounds bilaterally. Absent: respiratory distress, wheezes, rales, rhonchi, stridor Cardiovascular Exam: Present: regular rate, normal rhythm, normal heart sounds. Absent: systolic murmur, diastolic murmur, rubs, gallop, clicks GI/Abdominal exam: Present: soft, normal bowel sounds. Absent: distended, tenderness, guarding, rebound, rigid Back exam: Absent: CVA tenderness (R), CVA tenderness (L) Course Vital Signs 05/04/19 13:06 Temperature 98.8 F Pulse Rate 90 Respiratory 20 Rate Blood Pressure 118/78 O2 Sat by Pulse 100 Oximetry - Reevaluation(s) Reevaluation #1: 05/04/19 14:15 Patient reevaluated, worsen comfortably reports no nausea headache has resolved. Patient updated and results. Medical Decision Making - Medical Decision Making Labs are essentially unremarkable other than mild urinary tract infection on urinalysis. Patient we treated with Macrobid and. Patient was given Rocephin, improved after antiemetics will be discharged with antiemetics. - Lab Data Result diagrams: 05/04/19 13:30 05/04/19 13:30 Lab Results 05/04/19 05/04/19 05/04/19 Range/Units 13:30 13:30 13:30 WBC 6.2 (3.8-10.6) k/uL RBC 4.19 (3.80-5.40) m/uL Hgb 10.4 L (11.4-16.0) gm/dL Hct 33.9 L (34.0-46.0) % MCV 81.1 (80.0-100.0) fL MCH 24.9 L (25.0-35.0) pg MCHC 30.7 L (31.0-37.0) g/dL RDW 14.6 (11.5-15.5) % Plt Count 286 (150-450) k/uL Neutrophils % 76 % Lymphocytes % 16 % Monocytes % 5 % Eosinophils % 1 % Basophils % 0 % Neutrophils # 4.7 (1.3-7.7) k/uL Lymphocytes # 1.0 (1.0-4.8) k/uL Monocytes # 0.3 (0-1.0) k/uL Eosinophils # 0.0 (0-0.7) k/uL Basophils # 0.0 (0-0.2) k/uL Hypochromasia Slight Sodium 141 (137-145) mmol/L Potassium 4.1 (3.5-5.1) mmol/L Chloride 104 (98-107) mmol/L Carbon Dioxide 25 (22-30) mmol/L Anion Gap 12 mmol/L BUN 10 (7-17) mg/dL Creatinine 1.02 (0.52-1.04) mg/dL Est GFR (CKD-EPI)AfAm 85 (>60 ml/min/1.73 sqM) Est GFR (CKD-EPI)NonAf 74 (>60 ml/min/1.73 sqM) Glucose 110 H (74-99) mg/dL Calcium 9.1 (8.4-10.2) mg/dL Total Bilirubin 0.7 (0.2-1.3) mg/dL AST 18 (14-36) U/L ALT 18 (9-52) U/L Alkaline Phosphatase 98 (38-126) U/L Total Protein 7.4 (6.3-8.2) g/dL Albumin 4.1 (3.5-5.0) g/dL Amylase 39 (30-110) U/L Lipase 51 (23-300) U/L Urine Color Urine Appearance (Clear) Urine pH (5.0-8.0) Ur Specific [place] (1.001-1.035) Urine Protein (Negative) Urine Glucose (UA) (Negative) Urine Ketones (Negative) Urine Blood (Negative) Urine Nitrite (Negative) Urine Bilirubin (Negative) Urine Urobilinogen (<2.0) mg/dL Ur Leukocyte Esterase (Negative) Urine RBC (0-5) /hpf Urine WBC (0-5) /hpf Ur Squamous Epith Cells (0-4) /hpf Urine Bacteria (None) /hpf Urine Mucus (None) /hpf Urine HCG, Qual Not Detected (Not Detectd) 05/04/19 Range/Units 13:30 WBC (3.8-10.6) k/uL RBC (3.80-5.40) m/uL Hgb (11.4-16.0) gm/dL Hct (34.0-46.0) % MCV (80.0-100.0) fL MCH (25.0-35.0) pg MCHC (31.0-37.0) g/dL RDW (11.5-15.5) % Plt Count (150-450) k/uL Neutrophils % % Lymphocytes % % Monocytes % % Eosinophils % % Basophils % % Neutrophils # (1.3-7.7) k/uL Lymphocytes # (1.0-4.8) k/uL Monocytes # (0-1.0) k/uL Eosinophils # (0-0.7) k/uL Basophils # (0-0.2) k/uL Hypochromasia Sodium (137-145) mmol/L Potassium (3.5-5.1) mmol/L Chloride (98-107) mmol/L Carbon Dioxide (22-30) mmol/L Anion Gap mmol/L BUN (7-17) mg/dL Creatinine (0.52-1.04) mg/dL Est GFR (CKD-EPI)AfAm (>60 ml/min/1.73 sqM) Est GFR (CKD-EPI)NonAf (>60 ml/min/1.73 sqM) Glucose (74-99) mg/dL Calcium (8.4-10.2) mg/dL Total Bilirubin (0.2-1.3) mg/dL AST (14-36) U/L ALT (9-52) U/L Alkaline Phosphatase (38-126) U/L Total Protein (6.3-8.2) g/dL Albumin (3.5-5.0) g/dL Amylase (30-110) U/L Lipase (23-300) U/L Urine Color Yellow Urine Appearance Cloudy H (Clear) Urine pH 6.5 (5.0-8.0) Ur Specific [place] 1.017 (1.001-1.035) Urine Protein 1+ H (Negative) Urine Glucose (UA) Negative (Negative) Urine Ketones Negative (Negative) Urine Blood Negative (Negative) Urine Nitrite Negative (Negative) Urine Bilirubin Negative (Negative) Urine Urobilinogen <2.0 (<2.0) mg/dL Ur Leukocyte Esterase Moderate H (Negative) Urine RBC 10 H (0-5) /hpf Urine WBC 37 H (0-5) /hpf Ur Squamous Epith Cells 8 H (0-4) /hpf Urine Bacteria Rare H (None) /hpf Urine Mucus Occasional H (None) /hpf Urine HCG, Qual (Not Detectd) Disposition Clinical Impression: UTI (urinary tract infection), Nausea & vomiting Disposition: HOME SELF-CARE Condition: Stable Instructions (If sedation given, give patient instructions): Acute Nausea and Vomiting (ED) Additional Instructions: Please return to the Emergency Department if symptoms worsen or any other concerns. Prescriptions: Nitrofurantoin Monohyd/M-Cryst [Macrobid] 100 mg PO Q12HR #10 cap Ondansetron Odt [Zofran Odt] 4 mg PO Q8HR PRN #14 tab PRN Reason: Nausea Is patient prescribed a controlled substance at d/c from ED?: No Referrals: Jovany Aguirre MD [Primary Care Provider] - 1-2 days Time of Disposition: 14:16
[2019-05-04 14:37] VITALS: BP 104/75; PULSE 87; RESP 18; TEMP 98.1
== END 2019-05-04 14:30 | disposition home or self-care (01) ==
LOC: EC 12:49
DX: N39.0 Urinary tract infection, site not specified (principal); Z32.02 Encounter for pregnancy test, result negative; F17.200 Nicotine dependence, unspecified, uncomplicated; Z79.899 Other long term (current) drug therapy; Z88.0 Allergy status to penicillin; Z88.1 Allergy status to other antibiotic agents; Z88.5 Allergy status to narcotic agent
CPT/HCPCS: 99284; 96374; 96375 ×3; 36415; 80053; 82150; 83690; 85025; 81001; 81025; 87086; 96361 ×2; J1200; J2405; J0696; J1885